=== PATIENT | female | born 1960 | race Caucasian/White ===

== ENCOUNTER 2018-02-01 11:00 | Inpatient (IN) | payer OTHER ==
[2018-02-01] MEDS: SODIUM CHLORIDE 0.9% 1L BAG IV* (11:13)
[2018-02-01] MEDS: PIPER-TAZO 3.375 GM IV (PMX) 100 ML IVPB ×2 (11:49→19:44)
[2018-02-01] MEDS: ACETAMINOPHEN 325 MG TAB PO (11:50)
[2018-02-01 11:58] LABS: ABNORMAL IP MESSAGE 1; HEMATOCRIT 33.2 % (37.0-47.0); MEAN CORPUSCULAR HEMOGLOBIN 29.3 pg (29.0-33.0); MEAN CORPUSCULAR HGB CONC 33.1 g/dl (32.0-37.0); MEAN CORPUSCULAR VOLUME 88.5 fl (82.0-101.0); MEAN PLATELET VOLUME 11.2 fl (7.4-10.4); PLATELET COUNT 208 10^3/UL (140-415); RED BLOOD COUNT 3.75 10^6/ul (4.20-5.40); RED CELL DISTRIBUTION WIDTH 13.2 % (11.5-14.5)
[2018-02-01 11:59] LABS: ADD MAN DIFF? YES; POSITIVE DIFF @See below
[2018-02-01 12:15] LABS: ALANINE AMINOTRANSFERASE 40 IU/L (13-69); ALBUMIN 3.7 g/dl (3.3-4.9); ALBUMIN/GLOBULIN RATIO 0.94; ALKALINE PHOSPHATASE 292 IU/L (42-121); ANION GAP 22 (8-16); ASPARTATE AMINO TRANSFERASE 55 IU/L (15-46); BILIRUBIN,INDIRECT 0.2 mg/dl (0-1.1); BILIRUBIN,TOTAL 0.2 mg/dl (0.2-1.3); BLOOD UREA NITROGEN 24 mg/dl (7-20); CALCIUM 8.9 mg/dl (8.4-10.2); CARBON DIOXIDE 23 mmol/L (21-31); CHLORIDE 92 mmol/L (97-110); CREATININE 1.37 mg/dl (0.44-1.00); POTASSIUM 4.5 mmol/L (3.5-5.1); SODIUM 132 mmol/L (135-144); TOTAL PROTEIN 7.6 g/dl (6.1-8.1)
[2018-02-01 12:28] LABS: INR 1.12; PROTIME 14.6 Sec (11.9-14.9); PT RATIO 1.1
[2018-02-01 12:29] LABS: PARTIAL THROMBOPLASTIN TIME 32.3 Sec (25.0-35.0)
[2018-02-01 12:31] LABS: GLUCOSE 546 mg/dl (70-220)
[2018-02-01 12:32] LABS: LACTIC ACID 3.4 mmol/L (0.5-2.0)
[2018-02-01 12:38] LABS: BAND NEUTROPHILS #M 2.2 10^3/ul (0.0-0.6); BAND NEUTROPHILS % (M) 19 % (0-4); GIANT THROMBO% (M) 1 % (0-0); LYMPHOCYTES #M 0.1 10^3/ul (0.8-2.9); LYMPHOCYTES % (M) 1 % (15-51); MONOCYTE #M 0.3 10^3/ul (0.3-0.9); MONOCYTES % (M) 3 % (0-11); PLATELET ESTIMATE NORMAL; POLYCHROMASIA 1+ (0-0); SEG NEUT #M 9.5 10^3/ul (1.6-7.5); SEGMENTED NEUTROPHILS (M) % 77 % (39-77); SMUDGE%M 3 % (0-0)
[2018-02-01] MEDS: LACTATED RINGER'S 2,480 ML IV (12:43)
[2018-02-01] MEDS: VANCOMYCIN 1 GM (PMX) 250 ML IVPB (12:43)
[2018-02-01] MEDS: INSULIN LISPRO 100 UNIT/ML VIAL SC (14:02)
[2018-02-01 14:42] LABS: LACTIC ACID 1.7 mmol/L (0.5-2.0)
[2018-02-01] MEDS ORDERED: ACETAMINOPHEN 325 MG TAB PO (15:30)
[2018-02-01] MEDS ORDERED: ONDANSETRON 4 MG INJ IV ×2 (15:30→16:00)
[2018-02-01] MEDS ORDERED: GLUCOSE GEL 15 GRAM TUBE PO ×2 (16:00)
[2018-02-01] MEDS ORDERED: DEXTROSE 50% 50 ML SYRINGE IV ×2 (16:00)
[2018-02-01] MEDS ORDERED: NACL 0.9% 3 ML SYG IV (16:00)
[2018-02-01] MEDS ORDERED: GLUCAGON 1 MG INJ IM (16:00)
[2018-02-01] MEDS ORDERED: GLUCOSE GEL 15 GRAM TUBE BUCCAL (16:00)
[2018-02-01] MEDS ORDERED: VANCOMYCIN IV PER PHARMACY XX (16:00)
[2018-02-01 16:42] LABS: LACTIC ACID 1.8 mmol/L (0.5-2.0)
[2018-02-01] MEDS: VANCOMYCIN 750 MG in DEXTROSE 5% 150 ML IVPB (17:21)
[2018-02-01] MEDS: INSULIN ASPART [NOVOLOG] 3 ML PEN SC ×2 (18:44→22:27)
[2018-02-01] MEDS: FAMOTIDINE 20 MG INJ IV (21:41)
[2018-02-01] MEDS: morphine 2 MG INJ IV (22:30)
[2018-02-02] MEDS: PIPER-TAZO 3.375 GM IV (PMX) 100 ML IVPB ×4 (01:35→18:40)
[2018-02-02] MEDS: ACCU-CHEK XX (02:00)
[2018-02-02] MEDS: ACETAMINOPHEN 325 MG TAB PO (03:21)
[2018-02-02 06:18] LABS: HEMATOCRIT 30.5 % (37.0-47.0); HEMOGLOBIN 10.1 g/dl (12.0-16.0); MEAN CORPUSCULAR HEMOGLOBIN 29.3 pg (29.0-33.0); MEAN CORPUSCULAR HGB CONC 33.1 g/dl (32.0-37.0); MEAN CORPUSCULAR VOLUME 88.4 fl (82.0-101.0); MEAN PLATELET VOLUME 11.5 fl (7.4-10.4); PLATELET COUNT 188 10^3/UL (140-415); RED BLOOD COUNT 3.45 10^6/ul (4.20-5.40); RED CELL DISTRIBUTION WIDTH 13.5 % (11.5-14.5)
[2018-02-02 06:18] LABS: WHITE BLOOD COUNT 12.9 10^3/ul (4.8-10.8)
[2018-02-02 06:24] LABS: POSITIVE DIFF @See below
[2018-02-02 06:25] LABS: ADD MAN DIFF? YES
[2018-02-02 06:47] LABS: ADD UMIC YES; UR ASCORBIC ACID NEGATIVE (NEGATIVE); UR BILIRUBIN (Dip) NEGATIVE (NEGATIVE); UR BLOOD (Dip) 1+ mg/dL (NEGATIVE); UR BUDDING YEAST FEW /HPF (NONE SEEN); UR CLARITY SLIGHTLY CLOUDY (CLEAR); UR COLOR YELLOW (YELLOW); UR GLUCOSE (Dip) 3+ mg/dL (NEGATIVE); UR KETONES (Dip) TRACE mg/dL (NEGATIVE); UR LEUKOCYTE ESTERASE (Dip) NEGATIVE Leu/ul (NEGATIVE); UR NITRITE (Dip) NEGATIVE (NEGATIVE); UR RBC 1 /HPF (0-5); UR SPECIFIC GRAVITY (Dip) 1.016 (1.003-1.030); UR SQUAMOUS EPITHELIAL CELL FEW /HPF (FEW); UR TOTAL PROTEIN (Dip) 1+ mg/dl (NEGATIVE); UR UROBILINOGEN (Dip) NEGATIVE (NEGATIVE); UR WBC 4 /HPF (0-5)
[2018-02-02 06:53] LABS: ALANINE AMINOTRANSFERASE 33 IU/L (13-69); ALBUMIN 3.3 g/dl (3.3-4.9); ALBUMIN/GLOBULIN RATIO 0.94; ALKALINE PHOSPHATASE 207 IU/L (42-121); ANION GAP 16 (8-16); ASPARTATE AMINO TRANSFERASE 27 IU/L (15-46); BILIRUBIN,INDIRECT 0.3 mg/dl (0-1.1); BILIRUBIN,TOTAL 0.3 mg/dl (0.2-1.3); BLOOD UREA NITROGEN 19 mg/dl (7-20); CALCIUM 8.6 mg/dl (8.4-10.2); CARBON DIOXIDE 23 mmol/L (21-31); CHLORIDE 99 mmol/L (97-110); CREATININE 1.03 mg/dl (0.44-1.00); GLUCOSE 286 mg/dl (70-220); SODIUM 134 mmol/L (135-144); TOTAL PROTEIN 6.8 g/dl (6.1-8.1)
[2018-02-02] MEDS: INSULIN ASPART [NOVOLOG] 3 ML PEN SC ×4 (07:57→21:18)
[2018-02-02] MEDS: FAMOTIDINE 20 MG INJ IV ×2 (09:05→21:15)
[2018-02-02] MEDS: ENOXAPARIN 30 MG/0.3 ML SYG SC (09:08)
[2018-02-02 09:23] LABS: BAND NEUTROPHILS % (M) 16 % (0-4); ERYTHROBLAST% (NRBC) (M) 2 % (0-0); GIANT THROMBO% (M) 1 % (0-0); LYMPHOCYTES #M 0.9 10^3/ul (0.8-2.9); LYMPHOCYTES % (M) 7 % (15-51); MONOCYTE #M 0.9 10^3/ul (0.3-0.9); MONOCYTES % (M) 7 % (0-11); PLATELET ESTIMATE NORMAL; POIKILOCYTOSIS 1+ (0-0); POLYCHROMASIA 1+ (0-0); SEG NEUT #M 9.3 10^3/ul (1.6-7.5); SEGMENTED NEUTROPHILS (M) % 70 % (39-77)
[2018-02-02 13:43] LABS: HEMOGLOBIN A1C 11.4 % (0-5.9)
[2018-02-02] MEDS: VANCOMYCIN 1 GM 250 ML IVPB (17:02)
[2018-02-02] MEDS: morphine 2 MG INJ IV (17:22)
[2018-02-02] MEDS: INSULIN GLARGINE [LANtus] 3 ML PEN SC (21:17)
[2018-02-03] MEDS: PIPER-TAZO 3.375 GM IV (PMX) 100 ML IVPB ×3 (00:58→12:40)
[2018-02-03] MEDS: ACCU-CHEK XX ×2 (02:31→22:19)
[2018-02-03] MEDS: morphine 2 MG INJ IV ×2 (02:31→18:55)
[2018-02-03 05:47] LABS: ADD MAN DIFF? NO
[2018-02-03 05:59] LABS: WHITE BLOOD COUNT 12.2 10^3/ul (4.8-10.8)
[2018-02-03 05:59] LABS: BASOPHIL # 0.1 10^3/ul (0.0-0.1); BASOPHILS % 0.4 % (0.0-2.0); EOSINOPHILS # 0.1 10^3/ul (0.0-0.5); EOSINOPHILS % 0.5 % (0.0-7.0); HEMATOCRIT 30.3 % (37.0-47.0); LYMPHOCYTES # 1.6 10^3/ul (0.8-2.9); LYMPHOCYTES % 13.4 % (15.0-51.0); MEAN CORPUSCULAR HEMOGLOBIN 29.3 pg (29.0-33.0); MEAN CORPUSCULAR VOLUME 88.9 fl (82.0-101.0); MEAN PLATELET VOLUME 10.9 fl (7.4-10.4); MONOCYTE # 1.1 10^3/ul (0.3-0.9); MONOCYTES % 9.3 % (0.0-11.0); NEUTROPHIL # 9.2 10^3/ul (1.6-7.5); NEUTROPHILS % 75.2 % (39.0-77.0); PLATELET COUNT 252 10^3/UL (140-415); RED BLOOD COUNT 3.41 10^6/ul (4.20-5.40); RED CELL DISTRIBUTION WIDTH 13.5 % (11.5-14.5)
[2018-02-03 06:24] LABS: ANION GAP 12 (8-16); BLOOD UREA NITROGEN 14 mg/dl (7-20); CALCIUM 8.7 mg/dl (8.4-10.2); CARBON DIOXIDE 29 mmol/L (21-31); CHLORIDE 101 mmol/L (97-110); CREATININE 0.88 mg/dl (0.44-1.00); GLUCOSE 194 mg/dl (70-220); POTASSIUM 3.9 mmol/L (3.5-5.1); SODIUM 138 mmol/L (135-144)
[2018-02-03] MEDS: INSULIN ASPART [NOVOLOG] 3 ML PEN SC ×7 (08:10→20:07)
[2018-02-03] MEDS: LINAGLIPTIN 5 MG TABLET PO (08:53)
[2018-02-03] MEDS: FAMOTIDINE 20 MG INJ IV ×2 (08:54→20:05)
[2018-02-03] MEDS: ENOXAPARIN 30 MG/0.3 ML SYG SC (08:59)
[2018-02-03] MEDS ORDERED: INFLUENZA VIRUS VACCINE 0.5 ML (DISPENSING) IM* (09:00)
[2018-02-03] MEDS: FLUCONAZOLE 100 MG TAB PO (15:25)
[2018-02-03] MEDS: LEVOFLOXACIN 500 MG TAB PO (15:25)
[2018-02-03] MEDS: VANCOMYCIN 1 GM 250 ML IVPB (18:00)
[2018-02-03] MEDS: INSULIN GLARGINE [LANtus] 3 ML PEN SC ×2 (20:00→22:19)
[2018-02-03] MEDS: ACETAMINOPHEN 325 MG TAB PO (20:05)
[2018-02-04 05:47] LABS: ADD MAN DIFF? NO
[2018-02-04 05:58] LABS: WHITE BLOOD COUNT 10.3 10^3/ul (4.8-10.8)
[2018-02-04 05:58] LABS: BASOPHILS % 0.2 % (0.0-2.0); EOSINOPHILS % 0.3 % (0.0-7.0); HEMATOCRIT 29.7 % (37.0-47.0); HEMOGLOBIN 9.9 g/dl (12.0-16.0); LYMPHOCYTES # 1.3 10^3/ul (0.8-2.9); LYMPHOCYTES % 12.7 % (15.0-51.0); MEAN CORPUSCULAR HEMOGLOBIN 29.5 pg (29.0-33.0); MEAN CORPUSCULAR HGB CONC 33.3 g/dl (32.0-37.0); MEAN CORPUSCULAR VOLUME 88.4 fl (82.0-101.0); MEAN PLATELET VOLUME 10.7 fl (7.4-10.4); MONOCYTES % 9.3 % (0.0-11.0); NEUTROPHIL # 7.9 10^3/ul (1.6-7.5); NEUTROPHILS % 76.4 % (39.0-77.0); PLATELET COUNT 285 10^3/UL (140-415); RED BLOOD COUNT 3.36 10^6/ul (4.20-5.40); RED CELL DISTRIBUTION WIDTH 13.8 % (11.5-14.5)
[2018-02-04] MEDS: LEVOFLOXACIN 500 MG TAB PO (05:59)
[2018-02-04 06:20] LABS: ANION GAP 13 (8-16); BLOOD UREA NITROGEN 10 mg/dl (7-20); CALCIUM 8.8 mg/dl (8.4-10.2); CARBON DIOXIDE 27 mmol/L (21-31); CHLORIDE 102 mmol/L (97-110); CREATININE 0.89 mg/dl (0.44-1.00); GLUCOSE 164 mg/dl (70-220); POTASSIUM 4.1 mmol/L (3.5-5.1); SODIUM 138 mmol/L (135-144)
[2018-02-04] MEDS: FAMOTIDINE 20 MG INJ IV ×2 (08:15→21:03)
[2018-02-04] MEDS: LINAGLIPTIN 5 MG TABLET PO (08:15)
[2018-02-04] MEDS: FLUCONAZOLE 100 MG TAB PO (08:15)
[2018-02-04] MEDS: INSULIN ASPART [NOVOLOG] 3 ML PEN SC ×7 (08:22→21:00)
[2018-02-04] MEDS: ENOXAPARIN 30 MG/0.3 ML SYG SC (08:23)
[2018-02-04 17:06] LABS: VANCOMYCIN,TROUGH 7.2 ug/ml (10.0-20.0)
[2018-02-04] MEDS: VANCOMYCIN 1 GM 250 ML IVPB (17:25)
[2018-02-04] MEDS: INSULIN GLARGINE [LANtus] 3 ML PEN SC (21:11)
[2018-02-04] MEDS: morphine 2 MG INJ IV (23:59)
[2018-02-05] MEDS: ACCU-CHEK XX (02:00)
[2018-02-05 05:56] LABS: ADD MAN DIFF? NO
[2018-02-05] MEDS: VANCOMYCIN 1 GM 250 ML IVPB ×2 (06:06→17:45)
[2018-02-05] MEDS: LEVOFLOXACIN 500 MG TAB PO (06:06)
[2018-02-05 06:10] LABS: WHITE BLOOD COUNT 8.4 10^3/ul (4.8-10.8)
[2018-02-05 06:11] LABS: BASOPHILS % 0.2 % (0.0-2.0); EOSINOPHILS # 0.1 10^3/ul (0.0-0.5); HEMATOCRIT 29.4 % (37.0-47.0); HEMOGLOBIN 9.7 g/dl (12.0-16.0); LYMPHOCYTES # 1.3 10^3/ul (0.8-2.9); MEAN CORPUSCULAR HEMOGLOBIN 29.8 pg (29.0-33.0); MEAN CORPUSCULAR VOLUME 90.2 fl (82.0-101.0); MEAN PLATELET VOLUME 10.5 fl (7.4-10.4); MONOCYTE # 1.1 10^3/ul (0.3-0.9); MONOCYTES % 12.8 % (0.0-11.0); NEUTROPHIL # 5.9 10^3/ul (1.6-7.5); NEUTROPHILS % 69.7 % (39.0-77.0); PLATELET COUNT 324 10^3/UL (140-415); RED BLOOD COUNT 3.26 10^6/ul (4.20-5.40); RED CELL DISTRIBUTION WIDTH 13.8 % (11.5-14.5)
[2018-02-05 06:37] LABS: ANION GAP 12 (8-16); BLOOD UREA NITROGEN 9 mg/dl (7-20); CALCIUM 8.6 mg/dl (8.4-10.2); CARBON DIOXIDE 30 mmol/L (21-31); CHLORIDE 103 mmol/L (97-110); CREATININE 0.87 mg/dl (0.44-1.00); GLUCOSE 147 mg/dl (70-220); POTASSIUM 3.6 mmol/L (3.5-5.1); SODIUM 141 mmol/L (135-144)
[2018-02-05] MEDS: INSULIN ASPART [NOVOLOG] 3 ML PEN SC ×7 (08:46→20:50)
[2018-02-05] MEDS: LINAGLIPTIN 5 MG TABLET PO (08:57)
[2018-02-05] MEDS: FLUCONAZOLE 100 MG TAB PO (08:57)
[2018-02-05] MEDS: FAMOTIDINE 20 MG INJ IV (08:57)
[2018-02-05] MEDS: ENOXAPARIN 30 MG/0.3 ML SYG SC (09:01)
[2018-02-05] MEDS: LIDOCAINE 1% (MPF) 5 ML VIAL SC (10:10)
[2018-02-05] MEDS: SOD CHLORIDE 0.9% 100 ML (10:20)
[2018-02-05] MEDS: FAMOTIDINE 20 MG TAB PO (20:48)
[2018-02-05] MEDS: INSULIN GLARGINE [LANtus] 3 ML PEN SC (20:50)
[2018-02-05] MEDS: morphine 2 MG INJ IV (20:56)
[2018-02-06] MEDS: ACCU-CHEK XX (02:00)
[2018-02-06] MEDS: LEVOFLOXACIN 500 MG TAB PO (05:34)
[2018-02-06 06:00] LABS: ADD MAN DIFF? NO
[2018-02-06 06:26] LABS: WHITE BLOOD COUNT 7.6 10^3/ul (4.8-10.8)
[2018-02-06 06:26] LABS: BASOPHILS % 0.3 % (0.0-2.0); EOSINOPHILS # 0.1 10^3/ul (0.0-0.5); EOSINOPHILS % 1.3 % (0.0-7.0); HEMOGLOBIN 10.1 g/dl (12.0-16.0); LYMPHOCYTES # 1.1 10^3/ul (0.8-2.9); LYMPHOCYTES % 14.3 % (15.0-51.0); MEAN CORPUSCULAR HEMOGLOBIN 29.2 pg (29.0-33.0); MEAN CORPUSCULAR HGB CONC 32.6 g/dl (32.0-37.0); MEAN CORPUSCULAR VOLUME 89.6 fl (82.0-101.0); MEAN PLATELET VOLUME 10.2 fl (7.4-10.4); MONOCYTE # 0.9 10^3/ul (0.3-0.9); MONOCYTES % 11.9 % (0.0-11.0); NEUTROPHIL # 5.4 10^3/ul (1.6-7.5); NEUTROPHILS % 70.9 % (39.0-77.0); PLATELET COUNT 362 10^3/UL (140-415); RED BLOOD COUNT 3.46 10^6/ul (4.20-5.40); RED CELL DISTRIBUTION WIDTH 13.7 % (11.5-14.5)
[2018-02-06 07:10] LABS: VANCOMYCIN,TROUGH 12.5 ug/ml (10.0-20.0)
[2018-02-06] MEDS: VANCOMYCIN 1 GM 250 ML IVPB (07:57)
[2018-02-06] MEDS: INSULIN ASPART [NOVOLOG] 3 ML PEN SC ×7 (08:00→21:25)
[2018-02-06] MEDS: FAMOTIDINE 20 MG TAB PO ×2 (09:00→21:20)
[2018-02-06] MEDS: FLUCONAZOLE 100 MG TAB PO (09:00)
[2018-02-06] MEDS: ENOXAPARIN 30 MG/0.3 ML SYG SC (09:00)
[2018-02-06] MEDS ORDERED: POLYMYXIN/BACITRACIN 1L IRRIG (12:01)
[2018-02-06] MEDS ORDERED: ROPIVACAINE 0.5 % 30 ML VIAL (13:03)
[2018-02-06] MEDS ORDERED: MIDAZOLAM 1 MG/ML 2 ML INJ (13:03)
[2018-02-06] MEDS ORDERED: PROPOFOL 20 ML (13:03)
[2018-02-06] MEDS ORDERED: ONDANSETRON 4 MG INJ (13:03)
[2018-02-06] MEDS ORDERED: FENTAnyl 50 MCG/ML VIAL (13:08)
[2018-02-06] MEDS: BUPIVACAINE 0.5% (SDV) 30 ML INJ (14:32)
[2018-02-06] MEDS: LIDOCAINE 2% (MDV) 20 ML INJ (14:33)
[2018-02-06] MEDS: LINAGLIPTIN 5 MG TABLET PO (17:55)
[2018-02-06] MEDS: VANCOMYCIN 1.25 GM in SOD CHLORIDE 0.9% 250 ML IVPB (17:56)
[2018-02-06] MEDS: morphine 2 MG INJ IV ×2 (18:01→21:44)
[2018-02-06] MEDS: INSULIN GLARGINE [LANtus] 3 ML PEN SC (21:25)
[2018-02-07] MEDS: ACCU-CHEK XX (02:00)
[2018-02-07] MEDS: VANCOMYCIN 1.25 GM in SOD CHLORIDE 0.9% 250 ML IVPB ×2 (05:40→17:41)
[2018-02-07] MEDS: LEVOFLOXACIN 500 MG TAB PO (05:40)
[2018-02-07] MEDS: INSULIN ASPART [NOVOLOG] 3 ML PEN SC ×7 (08:15→21:00)
[2018-02-07] MEDS: ENOXAPARIN 30 MG/0.3 ML SYG SC (08:21)
[2018-02-07] MEDS: FAMOTIDINE 20 MG TAB PO ×2 (08:22→20:27)
[2018-02-07] MEDS: LINAGLIPTIN 5 MG TABLET PO (08:22)
[2018-02-07] MEDS: INSULIN GLARGINE [LANtus] 3 ML PEN SC (20:27)
[2018-02-08] MEDS: ACCU-CHEK XX (03:00)
[2018-02-08] MEDS: LEVOFLOXACIN 500 MG TAB PO (05:27)
[2018-02-08] MEDS: VANCOMYCIN 1.25 GM in SOD CHLORIDE 0.9% 250 ML IVPB (06:00)
[2018-02-08 06:12] LABS: ADD MAN DIFF? NO
[2018-02-08 06:22] LABS: WHITE BLOOD COUNT 6.7 10^3/ul (4.8-10.8)
[2018-02-08 06:22] LABS: BASOPHILS % 0.3 % (0.0-2.0); EOSINOPHILS # 0.2 10^3/ul (0.0-0.5); EOSINOPHILS % 2.5 % (0.0-7.0); HEMATOCRIT 27.6 % (37.0-47.0); LYMPHOCYTES # 1.3 10^3/ul (0.8-2.9); LYMPHOCYTES % 19.7 % (15.0-51.0); MEAN CORPUSCULAR HEMOGLOBIN 29.1 pg (29.0-33.0); MEAN CORPUSCULAR HGB CONC 32.6 g/dl (32.0-37.0); MEAN CORPUSCULAR VOLUME 89.3 fl (82.0-101.0); MONOCYTE # 0.7 10^3/ul (0.3-0.9); MONOCYTES % 10.4 % (0.0-11.0); NEUTROPHIL # 4.4 10^3/ul (1.6-7.5); NEUTROPHILS % 65.9 % (39.0-77.0); PLATELET COUNT 385 10^3/UL (140-415); RED BLOOD COUNT 3.09 10^6/ul (4.20-5.40); RED CELL DISTRIBUTION WIDTH 13.7 % (11.5-14.5)
[2018-02-08 06:45] LABS: BLOOD UREA NITROGEN 9 mg/dl (7-20)
[2018-02-08 06:45] LABS: CREATININE 0.86 mg/dl (0.44-1.00)
[2018-02-08 06:51] LABS: ANION GAP 14 (8-16); BLOOD UREA NITROGEN 8 mg/dl (7-20); CARBON DIOXIDE 28 mmol/L (21-31); CHLORIDE 105 mmol/L (97-110); CREATININE 0.84 mg/dl (0.44-1.00); GLUCOSE 92 mg/dl (70-220); SODIUM 143 mmol/L (135-144)
[2018-02-08 07:07] LABS: VANCOMYCIN,TROUGH 19.3 ug/ml (10.0-20.0)
[2018-02-08] MEDS: INSULIN ASPART [NOVOLOG] 3 ML PEN SC ×7 (08:15→21:00)
[2018-02-08] MEDS: LINAGLIPTIN 5 MG TABLET PO (08:32)
[2018-02-08] MEDS: FAMOTIDINE 20 MG TAB PO ×2 (08:32→21:11)
[2018-02-08] MEDS: morphine 2 MG INJ IV ×2 (08:33→21:18)
[2018-02-08] MEDS: ENOXAPARIN 30 MG/0.3 ML SYG SC (08:34)
[2018-02-08] MEDS: VANCOMYCIN 1 GM 250 ML IVPB ×2 (11:26→23:17)
[2018-02-08] MEDS: INSULIN GLARGINE [LANtus] 3 ML PEN SC (21:15)
[2018-02-09] MEDS: ACCU-CHEK XX (02:00)
[2018-02-09] MEDS: LEVOFLOXACIN 500 MG TAB PO (05:11)
[2018-02-09 05:36] LABS: ADD MAN DIFF? NO
[2018-02-09 05:40] LABS: WHITE BLOOD COUNT 6.2 10^3/ul (4.8-10.8)
[2018-02-09 05:40] LABS: BASOPHILS % 0.3 % (0.0-2.0); EOSINOPHILS # 0.2 10^3/ul (0.0-0.5); EOSINOPHILS % 2.6 % (0.0-7.0); HEMATOCRIT 26.8 % (37.0-47.0); HEMOGLOBIN 8.8 g/dl (12.0-16.0); LYMPHOCYTES # 1.4 10^3/ul (0.8-2.9); LYMPHOCYTES % 21.9 % (15.0-51.0); MEAN CORPUSCULAR HEMOGLOBIN 29.4 pg (29.0-33.0); MEAN CORPUSCULAR HGB CONC 32.8 g/dl (32.0-37.0); MEAN CORPUSCULAR VOLUME 89.6 fl (82.0-101.0); MEAN PLATELET VOLUME 9.8 fl (7.4-10.4); MONOCYTE # 0.6 10^3/ul (0.3-0.9); MONOCYTES % 8.9 % (0.0-11.0); NEUTROPHILS % 65.2 % (39.0-77.0); PLATELET COUNT 344 10^3/UL (140-415); RED BLOOD COUNT 2.99 10^6/ul (4.20-5.40); RED CELL DISTRIBUTION WIDTH 13.8 % (11.5-14.5)
[2018-02-09 06:08] LABS: ANION GAP 12 (8-16); BLOOD UREA NITROGEN 9 mg/dl (7-20); CALCIUM 8.9 mg/dl (8.4-10.2); CARBON DIOXIDE 29 mmol/L (21-31); CHLORIDE 105 mmol/L (97-110); CREATININE 0.84 mg/dl (0.44-1.00); GLUCOSE 141 mg/dl (70-220); POTASSIUM 4.2 mmol/L (3.5-5.1); SODIUM 142 mmol/L (135-144)
[2018-02-09] MEDS: INSULIN ASPART [NOVOLOG] 3 ML PEN SC ×7 (08:24→20:10)
[2018-02-09] MEDS: LINAGLIPTIN 5 MG TABLET PO (09:01)
[2018-02-09] MEDS: FAMOTIDINE 20 MG TAB PO ×2 (09:01→20:10)
[2018-02-09] MEDS: ENOXAPARIN 30 MG/0.3 ML SYG SC (09:05)
[2018-02-09] MEDS: VANCOMYCIN 1 GM 250 ML IVPB (12:26)
[2018-02-09] MEDS: CEFTRIAXONE 1 GM/50 ML (PMX) 50 ML IVPB (15:41)
[2018-02-09] MEDS: INSULIN GLARGINE [LANtus] 3 ML PEN SC (20:10)
[2018-02-10] MEDS: morphine 2 MG INJ IV (00:06)
[2018-02-10] MEDS: ACCU-CHEK XX (02:00)
[2018-02-10] MEDS: INSULIN ASPART [NOVOLOG] 3 ML PEN SC ×7 (07:57→20:30)
[2018-02-10] MEDS: FAMOTIDINE 20 MG TAB PO ×2 (09:30→20:30)
[2018-02-10] MEDS: LINAGLIPTIN 5 MG TABLET PO (09:30)
[2018-02-10] MEDS: ENOXAPARIN 30 MG/0.3 ML SYG SC (09:32)
[2018-02-10] MEDS: CEFTRIAXONE 1 GM/50 ML (PMX) 50 ML IVPB (13:34)
[2018-02-10] MEDS: INSULIN GLARGINE [LANtus] 3 ML PEN SC (20:29)
[2018-02-11] MEDS: ACCU-CHEK XX (01:12)
[2018-02-11 06:58] LABS: ADD MAN DIFF? NO
[2018-02-11 07:06] LABS: BASOPHILS % 0.6 % (0.0-2.0); EOSINOPHILS # 0.1 10^3/ul (0.0-0.5); EOSINOPHILS % 1.9 % (0.0-7.0); HEMATOCRIT 30.2 % (37.0-47.0); HEMOGLOBIN 9.9 g/dl (12.0-16.0); LYMPHOCYTES # 1.5 10^3/ul (0.8-2.9); LYMPHOCYTES % 24.3 % (15.0-51.0); MEAN CORPUSCULAR HEMOGLOBIN 29.6 pg (29.0-33.0); MEAN CORPUSCULAR HGB CONC 32.8 g/dl (32.0-37.0); MEAN CORPUSCULAR VOLUME 90.1 fl (82.0-101.0); MEAN PLATELET VOLUME 9.3 fl (7.4-10.4); MONOCYTE # 0.4 10^3/ul (0.3-0.9); MONOCYTES % 7.1 % (0.0-11.0); PLATELET COUNT 439 10^3/UL (140-415); RED BLOOD COUNT 3.35 10^6/ul (4.20-5.40); RED CELL DISTRIBUTION WIDTH 13.9 % (11.5-14.5)
[2018-02-11 07:06] LABS: WHITE BLOOD COUNT 6.2 10^3/ul (4.8-10.8)
[2018-02-11 07:24] LABS: ANION GAP 15 (8-16); BLOOD UREA NITROGEN 13 mg/dl (7-20); CALCIUM 9.3 mg/dl (8.4-10.2); CARBON DIOXIDE 29 mmol/L (21-31); CHLORIDE 104 mmol/L (97-110); GLUCOSE 149 mg/dl (70-220); POTASSIUM 4.7 mmol/L (3.5-5.1); SODIUM 143 mmol/L (135-144)
[2018-02-11] MEDS: FAMOTIDINE 20 MG TAB PO ×2 (08:11→20:46)
[2018-02-11] MEDS: LINAGLIPTIN 5 MG TABLET PO (08:11)
[2018-02-11] MEDS: INSULIN ASPART [NOVOLOG] 3 ML PEN SC ×7 (08:17→20:46)
[2018-02-11] MEDS: ENOXAPARIN 30 MG/0.3 ML SYG SC (08:18)
[2018-02-11] MEDS: CEFTRIAXONE 1 GM/50 ML (PMX) 50 ML IVPB (13:43)
[2018-02-11] MEDS: INSULIN GLARGINE [LANtus] 3 ML PEN SC (20:46)
[2018-02-12] MEDS: ACCU-CHEK XX (02:00)
[2018-02-12] MEDS: morphine LIQ (10 MG/5 ML) CUP PO (02:24)
[2018-02-12 05:58] LABS: ADD MAN DIFF? NO
[2018-02-12 05:59] LABS: WHITE BLOOD COUNT 6.7 10^3/ul (4.8-10.8)
[2018-02-12 05:59] LABS: BASOPHILS % 0.5 % (0.0-2.0); EOSINOPHILS # 0.1 10^3/ul (0.0-0.5); EOSINOPHILS % 1.8 % (0.0-7.0); HEMATOCRIT 30.9 % (37.0-47.0); HEMOGLOBIN 10.1 g/dl (12.0-16.0); LYMPHOCYTES # 1.9 10^3/ul (0.8-2.9); MEAN CORPUSCULAR HGB CONC 32.7 g/dl (32.0-37.0); MEAN CORPUSCULAR VOLUME 88.8 fl (82.0-101.0); MEAN PLATELET VOLUME 9.2 fl (7.4-10.4); MONOCYTE # 0.6 10^3/ul (0.3-0.9); MONOCYTES % 8.3 % (0.0-11.0); NEUTROPHILS % 59.6 % (39.0-77.0); PLATELET COUNT 406 10^3/UL (140-415); RED BLOOD COUNT 3.48 10^6/ul (4.20-5.40); RED CELL DISTRIBUTION WIDTH 13.3 % (11.5-14.5)
[2018-02-12 06:30] LABS: ANION GAP 15 (8-16); BLOOD UREA NITROGEN 17 mg/dl (7-20); CALCIUM 9.4 mg/dl (8.4-10.2); CARBON DIOXIDE 28 mmol/L (21-31); CHLORIDE 105 mmol/L (97-110); CREATININE 0.96 mg/dl (0.44-1.00); GLUCOSE 143 mg/dl (70-220); POTASSIUM 4.6 mmol/L (3.5-5.1); SODIUM 143 mmol/L (135-144)
[2018-02-12] MEDS: INSULIN ASPART [NOVOLOG] 3 ML PEN SC ×7 (08:15→20:32)
[2018-02-12] MEDS: LINAGLIPTIN 5 MG TABLET PO (08:38)
[2018-02-12] MEDS: ENOXAPARIN 30 MG/0.3 ML SYG SC (08:38)
[2018-02-12] MEDS: FAMOTIDINE 20 MG TAB PO ×2 (08:38→20:29)
[2018-02-12] MEDS: CEFTRIAXONE 1 GM/50 ML (PMX) 50 ML IVPB (14:43)
[2018-02-12] MEDS: INSULIN GLARGINE [LANtus] 3 ML PEN SC (20:32)
[2018-02-13] MEDS: ACCU-CHEK XX ×2 (00:41→21:47)
[2018-02-13] MEDS: FAMOTIDINE 20 MG TAB PO ×2 (08:18→20:42)
[2018-02-13] MEDS: LINAGLIPTIN 5 MG TABLET PO (08:18)
[2018-02-13] MEDS: ENOXAPARIN 30 MG/0.3 ML SYG SC (08:24)
[2018-02-13] MEDS: INSULIN ASPART [NOVOLOG] 3 ML PEN SC ×7 (08:24→21:00)
[2018-02-13] MEDS: CEFTRIAXONE 1 GM/50 ML (PMX) 50 ML IVPB (13:08)
[2018-02-13] MEDS ORDERED: HYDROCODONE/APAP (5/325) TAB PO (16:00)
[2018-02-13] MEDS: INSULIN GLARGINE [LANtus] 3 ML PEN SC (20:00)
[2018-02-13] MEDS: morphine LIQ (10 MG/5 ML) CUP PO (20:14)
[2018-02-14 05:52] LABS: ADD MAN DIFF? NO
[2018-02-14 06:03] LABS: BASOPHIL # 0.1 10^3/ul (0.0-0.1); BASOPHILS % 0.8 % (0.0-2.0); EOSINOPHILS # 0.1 10^3/ul (0.0-0.5); EOSINOPHILS % 2.1 % (0.0-7.0); HEMATOCRIT 30.7 % (37.0-47.0); MEAN CORPUSCULAR HEMOGLOBIN 29.4 pg (29.0-33.0); MEAN CORPUSCULAR HGB CONC 32.6 g/dl (32.0-37.0); MEAN CORPUSCULAR VOLUME 90.3 fl (82.0-101.0); MEAN PLATELET VOLUME 9.5 fl (7.4-10.4); MONOCYTE # 0.5 10^3/ul (0.3-0.9); MONOCYTES % 8.4 % (0.0-11.0); NEUTROPHIL # 3.5 10^3/ul (1.6-7.5); NEUTROPHILS % 55.9 % (39.0-77.0); PLATELET COUNT 378 10^3/UL (140-415); RED CELL DISTRIBUTION WIDTH 13.4 % (11.5-14.5)
[2018-02-14 06:03] LABS: WHITE BLOOD COUNT 6.2 10^3/ul (4.8-10.8)
[2018-02-14 06:15] LABS: ANION GAP 19 (8-16); BLOOD UREA NITROGEN 23 mg/dl (7-20); CALCIUM 9.2 mg/dl (8.4-10.2); CARBON DIOXIDE 26 mmol/L (21-31); CHLORIDE 104 mmol/L (97-110); CREATININE 0.95 mg/dl (0.44-1.00); GLUCOSE 137 mg/dl (70-220); POTASSIUM 4.8 mmol/L (3.5-5.1); SODIUM 144 mmol/L (135-144)
[2018-02-14] MEDS: INSULIN ASPART [NOVOLOG] 3 ML PEN SC ×7 (08:32→20:50)
[2018-02-14] MEDS: FAMOTIDINE 20 MG TAB PO ×2 (08:38→20:47)
[2018-02-14] MEDS: LINAGLIPTIN 5 MG TABLET PO (08:38)
[2018-02-14] MEDS: ENOXAPARIN 30 MG/0.3 ML SYG SC (08:39)
[2018-02-14] MEDS: CEFTRIAXONE 1 GM/50 ML (PMX) 50 ML IVPB (17:37)
[2018-02-14] MEDS: INSULIN GLARGINE [LANtus] 3 ML PEN SC (20:50)
[2018-02-15] MEDS: ACCU-CHEK XX (02:00)
[2018-02-15] MEDS: LINAGLIPTIN 5 MG TABLET PO (08:11)
[2018-02-15] MEDS: FAMOTIDINE 20 MG TAB PO (08:12)
[2018-02-15] MEDS: ENOXAPARIN 30 MG/0.3 ML SYG SC (08:13)
[2018-02-15] MEDS: INSULIN ASPART [NOVOLOG] 3 ML PEN SC ×4 (08:19→12:07)
[2018-02-15] MEDS: CEFTRIAXONE 1 GM/50 ML (PMX) 50 ML IVPB (14:19)
== END 2018-02-15 15:50 | disposition home health service (06) | DRG 872 ==
LOC: E/R 11:00 → MS2 19:48
PROC: 0Y9M0ZX Drainage of Right Foot, Open Approach, Diagnostic (ICD-10-PCS; 2018-02-06 13:00)
PROC: 0Y9K0ZX Drainage of Right Ankle Region, Open Approach, Diagnostic (ICD-10-PCS; 2018-02-06 13:00)
PROC: 05H533Z Insertion of Infusion Device into Right Subclavian Vein, Percutaneous Approach (ICD-10-PCS; principal; 2018-02-06 13:38)
PROC: B546ZZA Ultrasonography of Right Subclavian Vein, Guidance (ICD-10-PCS; 2018-02-06 13:38)
DX: A41.9 Sepsis, unspecified organism (principal); E11.21 Type 2 diabetes mellitus with diabetic nephropathy; E11.40 Type 2 diabetes mellitus with diabetic neuropathy, unspecified; M86.171 Other acute osteomyelitis, right ankle and foot; L02.611 Cutaneous abscess of right foot; E11.22 Type 2 diabetes mellitus with diabetic chronic kidney disease; E11.621 Type 2 diabetes mellitus with foot ulcer; E11.610 Type 2 diabetes mellitus with diabetic neuropathic arthropathy; E66.01 Morbid (severe) obesity due to excess calories; E11.65 Type 2 diabetes mellitus with hyperglycemia; L97.512 Non-pressure chronic ulcer of other part of right foot with fat layer exposed; R65.20 Severe sepsis without septic shock; I12.9 Hypertensive chronic kidney disease with stage 1 through stage 4 chronic kidney disease, or unspecified chronic kidney disease; N18.9 Chronic kidney disease, unspecified; D63.8 Anemia in other chronic diseases classified elsewhere; E78.5 Hyperlipidemia, unspecified; I70.203 Unspecified atherosclerosis of native arteries of extremities, bilateral legs; B95.1 Streptococcus, group B, as the cause of diseases classified elsewhere; Z68.33 Body mass index [BMI] 33.0-33.9, adult; Z79.4 Long term (current) use of insulin; Z91.19 Patient's noncompliance with other medical treatment and regimen
CPT/HCPCS: 36415; 36569; 71045; 73630; 73718; 76937; 80048; 80053; 80202; 81001; 82565; 82962; 83036; 83605; 84443; 84484; 84520; 85025; 85610; 85730; 87040; 87070; 87075; 87086; 87102; 87116; 93005; 93306; 93922; 96372; 96374; 96375; 97116; 97161; 97530; 97542; 99291-25

== ENCOUNTER 2018-03-03 13:39 | Emergency (ER) | payer OTHER ==
[2018-03-03 15:42] LABS: INR 0.93; PROTIME 12.6 Sec (11.9-14.9)
[2018-03-03] MEDS: LIDOCAINE 1% (MPF) 5 ML VIAL SC (16:24)
== END 2018-03-03 17:20 | disposition home or self-care (01) ==
LOC: E/R 13:39
DX: Z45.2 Encounter for adjustment and management of vascular access device (principal); E11.9 Type 2 diabetes mellitus without complications; Z79.4 Long term (current) use of insulin
CPT/HCPCS: 36569; 71045; 76937; 85610; 99285-25

== ENCOUNTER 2018-06-08 17:45 | Inpatient (IN) | payer MEDICARE, OTHER ==
[2018-06-08 21:42] LABS: ADD MAN DIFF? NO
[2018-06-08 21:46] LABS: WHITE BLOOD COUNT 10.3 10^3/ul (4.8-10.8)
[2018-06-08 21:46] LABS: BASOPHILS % 0.2 % (0.0-2.0); EOSINOPHILS % 0.3 % (0.0-7.0); HEMATOCRIT 32.8 % (37.0-47.0); HEMOGLOBIN 10.6 g/dl (12.0-16.0); LYMPHOCYTES # 0.9 10^3/ul (0.8-2.9); LYMPHOCYTES % 8.4 % (15.0-51.0); MEAN CORPUSCULAR HEMOGLOBIN 28.6 pg (29.0-33.0); MEAN CORPUSCULAR HGB CONC 32.3 g/dl (32.0-37.0); MEAN CORPUSCULAR VOLUME 88.6 fl (82.0-101.0); MEAN PLATELET VOLUME 10.1 fl (7.4-10.4); MONOCYTE # 0.7 10^3/ul (0.3-0.9); MONOCYTES % 6.6 % (0.0-11.0); NEUTROPHIL # 8.7 10^3/ul (1.6-7.5); NEUTROPHILS % 84.1 % (39.0-77.0); PLATELET COUNT 377 10^3/UL (140-415); RED CELL DISTRIBUTION WIDTH 13.3 % (11.5-14.5)
[2018-06-08 22:04] LABS: ADD UMIC YES; UR ASCORBIC ACID NEGATIVE (NEGATIVE); UR BACTERIA FEW /HPF (NONE SEEN); UR BILIRUBIN (Dip) NEGATIVE (NEGATIVE); UR BLOOD (Dip) 1+ mg/dL (NEGATIVE); UR CLARITY SLIGHTLY CLOUDY (CLEAR); UR COLOR YELLOW (YELLOW); UR GLUCOSE (Dip) 3+ mg/dL (NEGATIVE); UR KETONES (Dip) NEGATIVE (NEGATIVE); UR LEUKOCYTE ESTERASE (Dip) NEGATIVE Leu/ul (NEGATIVE); UR NITRITE (Dip) POSITIVE (NEGATIVE); UR RBC 1 /HPF (0-5); UR SQUAMOUS EPITHELIAL CELL FEW /HPF (FEW); UR TOTAL PROTEIN (Dip) NEGATIVE (NEGATIVE); UR UROBILINOGEN (Dip) NEGATIVE (NEGATIVE); UR WBC 3 /HPF (0-5)
[2018-06-08 22:05] LABS: ALANINE AMINOTRANSFERASE 22 IU/L (13-69); ALBUMIN 4.3 g/dl (3.3-4.9); ALBUMIN/GLOBULIN RATIO 0.95; ALKALINE PHOSPHATASE 226 IU/L (42-121); ANION GAP 18 (8-16); ASPARTATE AMINO TRANSFERASE 30 IU/L (15-46); BILIRUBIN,INDIRECT 0.5 mg/dl (0-1.1); BILIRUBIN,TOTAL 0.5 mg/dl (0.2-1.3); BLOOD UREA NITROGEN 25 mg/dl (7-20); CALCIUM 9.3 mg/dl (8.4-10.2); CARBON DIOXIDE 23 mmol/L (21-31); CHLORIDE 97 mmol/L (97-110); CREATININE 0.94 mg/dl (0.44-1.00); GLUCOSE 333 mg/dl (70-220); SODIUM 133 mmol/L (135-144); TOTAL PROTEIN 8.8 g/dl (6.1-8.1)
[2018-06-08 22:14] LABS: LACTIC ACID 2.7 mmol/L (0.5-2.0)
[2018-06-08 22:16] LABS: TROPONIN-I < 0.010 ng/ml (0.000-0.120)
[2018-06-08 22:30] LABS: POTASSIUM 5.4 mmol/L (3.5-5.1)
[2018-06-08 22:42] LABS: INR 1.04; PROTIME 13.7 Sec (11.9-14.9); PT RATIO 1.1
[2018-06-08] MEDS: CEFTRIAXONE 1 GM/50 ML (PMX) 50 ML IVPB (23:11)
[2018-06-08] MEDS: SOD CHLORIDE 0.9% 1,000 ML IV (23:11)
[2018-06-08] MEDS: morphine 4 MG/ML VIAL IV (23:11)
[2018-06-08] MEDS: ONDANSETRON 4 MG INJ IV (23:11)
[2018-06-08] MEDS: VANCOMYCIN 1 GM (PMX) 250 ML IVPB (23:15)
[2018-06-08] MEDS: PIPER-TAZO 3.375 GM IV (PMX) 100 ML IVPB (23:16)
[2018-06-09] MEDS: ACETAMINOPHEN 325 MG TAB PO (00:56)
[2018-06-09] MEDS ORDERED: ZOLPIDEM 5 MG TAB PO (12:30)
[2018-06-09] MEDS ORDERED: ONDANSETRON 4 MG INJ IV (12:30)
[2018-06-09] MEDS ORDERED: VANCOMYCIN IV PER PHARMACY XX (12:30)
[2018-06-09] MEDS ORDERED: ACETAMINOPHEN 325 MG TAB PO (12:30)
[2018-06-09] MEDS ORDERED: morphine 2 MG INJ IV (12:30)
[2018-06-09 13:28] LABS: ADD MAN DIFF? NO
[2018-06-09 13:34] LABS: BASOPHILS % 0.4 % (0.0-2.0); EOSINOPHILS # 0.1 10^3/ul (0.0-0.5); EOSINOPHILS % 1.3 % (0.0-7.0); HEMATOCRIT 31.1 % (37.0-47.0); HEMOGLOBIN 9.9 g/dl (12.0-16.0); LYMPHOCYTES # 1.1 10^3/ul (0.8-2.9); LYMPHOCYTES % 14.9 % (15.0-51.0); MEAN CORPUSCULAR HEMOGLOBIN 28.7 pg (29.0-33.0); MEAN CORPUSCULAR HGB CONC 31.8 g/dl (32.0-37.0); MEAN CORPUSCULAR VOLUME 90.1 fl (82.0-101.0); MEAN PLATELET VOLUME 9.5 fl (7.4-10.4); MONOCYTE # 0.6 10^3/ul (0.3-0.9); MONOCYTES % 7.8 % (0.0-11.0); NEUTROPHIL # 5.8 10^3/ul (1.6-7.5); NEUTROPHILS % 75.1 % (39.0-77.0); PLATELET COUNT 328 10^3/UL (140-415); RED BLOOD COUNT 3.45 10^6/ul (4.20-5.40); RED CELL DISTRIBUTION WIDTH 13.2 % (11.5-14.5)
[2018-06-09 13:34] LABS: WHITE BLOOD COUNT 7.7 10^3/ul (4.8-10.8)
[2018-06-09 13:51] LABS: ANION GAP 16 (8-16); BLOOD UREA NITROGEN 17 mg/dl (7-20); CALCIUM 8.9 mg/dl (8.4-10.2); CARBON DIOXIDE 23 mmol/L (21-31); CHLORIDE 103 mmol/L (97-110); CREATININE 0.87 mg/dl (0.44-1.00); GLUCOSE 385 mg/dl (70-220); POTASSIUM 4.7 mmol/L (3.5-5.1); SODIUM 137 mmol/L (135-144)
[2018-06-09 14:21] LABS: HEMOGLOBIN A1C 10.7 % (0-5.9)
[2018-06-09] MEDS: HYDROCODONE/APAP (5/325) TAB PO (14:28)
[2018-06-09] MEDS ORDERED: DEXTROSE 50% 50 ML SYRINGE IV ×2 (14:30)
[2018-06-09] MEDS ORDERED: GLUCOSE GEL 15 GRAM TUBE PO (14:30)
[2018-06-09] MEDS ORDERED: GLUCAGON 1 MG INJ IM (14:30)
[2018-06-09] MEDS: SOD CHLORIDE 0.9% 1,000 ML IV (15:05)
[2018-06-09] MEDS: VANCOMYCIN 1 GM 250 ML IVPB (15:39)
[2018-06-09] MEDS: INSULIN ASPART [NOVOLOG] 3 ML PEN SC ×3 (18:00→22:18)
[2018-06-09] MEDS: metFORMIN 500 MG TAB PO (21:21)
[2018-06-09] MEDS: FAMOTIDINE 20 MG TAB PO (22:12)
[2018-06-09] MEDS: INSULIN GLARGINE [LANTus] (100 UNITS/ML) SYG SC (22:19)
[2018-06-09] MEDS: CEFTRIAXONE 1 GM/50 ML (PMX) 50 ML IVPB (23:11)
[2018-06-10] MEDS: ACCU-CHEK XX (01:27)
[2018-06-10] MEDS: INSULIN GLARGINE [LANTus] (100 UNITS/ML) SYG SC ×2 (01:31→21:01)
[2018-06-10] MEDS: SOD CHLORIDE 0.9% 1,000 ML IV ×4 (02:20→20:54)
[2018-06-10] MEDS: VANCOMYCIN 1 GM 250 ML IVPB ×2 (03:08→16:11)
[2018-06-10] MEDS: metFORMIN 500 MG TAB PO ×2 (08:11→17:50)
[2018-06-10] MEDS: INSULIN ASPART [NOVOLOG] 3 ML PEN SC ×7 (08:14→20:58)
[2018-06-10] MEDS: ENOXAPARIN 30 MG/0.3 ML SYG SC (08:15)
[2018-06-10] MEDS: DOCUSATE SODIUM 100 MG CAP PO (08:16)
[2018-06-10] MEDS: FAMOTIDINE 20 MG TAB PO ×2 (08:16→20:53)
[2018-06-10] MEDS ORDERED: morphine LIQ (10 MG/5 ML) CUP PO (14:30)
[2018-06-10] MEDS: CEFTRIAXONE 1 GM/50 ML (PMX) 50 ML IVPB (23:09)
[2018-06-11] MEDS: ACCU-CHEK XX (01:50)
[2018-06-11 04:09] LABS: VANCOMYCIN,TROUGH 16.8 ug/ml (10.0-20.0)
[2018-06-11] MEDS: VANCOMYCIN 1 GM 250 ML IVPB (04:19)
[2018-06-11 05:46] LABS: ADD MAN DIFF? NO
[2018-06-11 05:59] LABS: WHITE BLOOD COUNT 4.8 10^3/ul (4.8-10.8)
[2018-06-11 05:59] LABS: BASOPHILS % 0.6 % (0.0-2.0); EOSINOPHILS # 0.1 10^3/ul (0.0-0.5); EOSINOPHILS % 2.1 % (0.0-7.0); HEMATOCRIT 31.3 % (37.0-47.0); HEMOGLOBIN 10.1 g/dl (12.0-16.0); LYMPHOCYTES # 1.4 10^3/ul (0.8-2.9); LYMPHOCYTES % 28.3 % (15.0-51.0); MEAN CORPUSCULAR HGB CONC 32.3 g/dl (32.0-37.0); MEAN CORPUSCULAR VOLUME 89.9 fl (82.0-101.0); MEAN PLATELET VOLUME 9.7 fl (7.4-10.4); MONOCYTE # 0.3 10^3/ul (0.3-0.9); MONOCYTES % 6.6 % (0.0-11.0); NEUTROPHILS % 61.8 % (39.0-77.0); PLATELET COUNT 330 10^3/UL (140-415); RED BLOOD COUNT 3.48 10^6/ul (4.20-5.40); RED CELL DISTRIBUTION WIDTH 13.2 % (11.5-14.5)
[2018-06-11 06:25] LABS: CHOLESTEROL 176 mg/dl (100-200)
[2018-06-11 06:25] LABS: CHOL/HDL RATIO 4.8 RATIO; HDL CHOLESTEROL 36 mg/dl (37-92); LDL CHOLESTEROL,CALCULATED 101 mg/dl; TRIGLYCERIDES 197 mg/dl (0-149)
[2018-06-11 06:37] LABS: ANION GAP 12 (8-16); BLOOD UREA NITROGEN 13 mg/dl (7-20); CALCIUM 8.7 mg/dl (8.4-10.2); CARBON DIOXIDE 24 mmol/L (21-31); CHLORIDE 111 mmol/L (97-110); CREATININE 0.74 mg/dl (0.44-1.00); GLUCOSE 174 mg/dl (70-220); POTASSIUM 4.6 mmol/L (3.5-5.1); SODIUM 142 mmol/L (135-144)
[2018-06-11] MEDS: SOD CHLORIDE 0.9% 1,000 ML IV ×3 (06:56→21:14)
[2018-06-11] MEDS: INSULIN ASPART [NOVOLOG] 3 ML PEN SC ×7 (08:28→20:48)
[2018-06-11] MEDS: LISINOPRIL 10 MG TAB GTB (08:59)
[2018-06-11] MEDS: DOCUSATE SODIUM 100 MG CAP PO (08:59)
[2018-06-11] MEDS: FAMOTIDINE 20 MG TAB PO ×2 (08:59→20:45)
[2018-06-11] MEDS: metFORMIN 500 MG TAB PO ×2 (08:59→17:48)
[2018-06-11] MEDS: ENOXAPARIN 30 MG/0.3 ML SYG SC (08:59)
[2018-06-11] MEDS ORDERED: VANCOMYCIN 750 MG in SOD CHLORIDE 0.9% 150 ML IVPB (16:00)
[2018-06-11] MEDS: ATORVASTATIN 10 MG TAB PO (20:45)
[2018-06-11] MEDS: GLUCOSE GEL 15 GRAM TUBE PO (20:53)
[2018-06-11] MEDS: INSULIN GLARGINE [LANTus] (100 UNITS/ML) SYG SC (21:11)
[2018-06-11] MEDS: CEFTRIAXONE 1 GM/50 ML (PMX) 50 ML IVPB (22:12)
[2018-06-12] MEDS: ACCU-CHEK XX (01:00)
[2018-06-12 06:15] LABS: ADD MAN DIFF? NO
[2018-06-12 06:18] LABS: BASOPHILS % 0.4 % (0.0-2.0); EOSINOPHILS # 0.1 10^3/ul (0.0-0.5); EOSINOPHILS % 2.4 % (0.0-7.0); HEMATOCRIT 32.6 % (37.0-47.0); HEMOGLOBIN 10.1 g/dl (12.0-16.0); LYMPHOCYTES # 1.7 10^3/ul (0.8-2.9); LYMPHOCYTES % 31.4 % (15.0-51.0); MEAN CORPUSCULAR HEMOGLOBIN 28.1 pg (29.0-33.0); MEAN CORPUSCULAR VOLUME 90.8 fl (82.0-101.0); MEAN PLATELET VOLUME 9.7 fl (7.4-10.4); MONOCYTE # 0.4 10^3/ul (0.3-0.9); MONOCYTES % 7.4 % (0.0-11.0); NEUTROPHIL # 3.2 10^3/ul (1.6-7.5); NEUTROPHILS % 57.7 % (39.0-77.0); PLATELET COUNT 361 10^3/UL (140-415); RED BLOOD COUNT 3.59 10^6/ul (4.20-5.40); RED CELL DISTRIBUTION WIDTH 13.2 % (11.5-14.5)
[2018-06-12 06:18] LABS: WHITE BLOOD COUNT 5.5 10^3/ul (4.8-10.8)
[2018-06-12 07:02] LABS: ANION GAP 16 (8-16); BLOOD UREA NITROGEN 12 mg/dl (7-20); CARBON DIOXIDE 25 mmol/L (21-31); CHLORIDE 108 mmol/L (97-110); CREATININE 0.82 mg/dl (0.44-1.00); GLUCOSE 119 mg/dl (70-220); POTASSIUM 4.5 mmol/L (3.5-5.1); SODIUM 144 mmol/L (135-144)
[2018-06-12] MEDS: INSULIN ASPART [NOVOLOG] 3 ML PEN SC ×6 (08:12→20:24)
[2018-06-12] MEDS: metFORMIN 500 MG TAB PO ×2 (08:12→17:54)
[2018-06-12] MEDS: DOCUSATE SODIUM 100 MG CAP PO (08:27)
[2018-06-12] MEDS: FAMOTIDINE 20 MG TAB PO ×2 (08:27→20:24)
[2018-06-12] MEDS: LISINOPRIL 10 MG TAB GTB (08:28)
[2018-06-12] MEDS: ENOXAPARIN 30 MG/0.3 ML SYG SC (08:33)
[2018-06-12] MEDS: SOD CHLORIDE 0.9% 1,000 ML IV (11:39)
[2018-06-12] MEDS: ATORVASTATIN 10 MG TAB PO (20:24)
[2018-06-12] MEDS: INSULIN GLARGINE [LANTus] (100 UNITS/ML) SYG SC (20:29)
[2018-06-13] MEDS: CEFTRIAXONE 1 GM/50 ML (PMX) 50 ML IVPB ×2 (00:27→23:00)
[2018-06-13] MEDS: ACCU-CHEK XX (02:00)
[2018-06-13] MEDS: SOD CHLORIDE 0.9% 1,000 ML IV ×3 (05:19→21:29)
[2018-06-13 06:04] LABS: ADD MAN DIFF? NO
[2018-06-13 06:16] LABS: BASOPHILS % 0.4 % (0.0-2.0); EOSINOPHILS # 0.1 10^3/ul (0.0-0.5); EOSINOPHILS % 2.3 % (0.0-7.0); HEMATOCRIT 31.4 % (37.0-47.0); HEMOGLOBIN 9.9 g/dl (12.0-16.0); LYMPHOCYTES # 1.7 10^3/ul (0.8-2.9); LYMPHOCYTES % 36.4 % (15.0-51.0); MEAN CORPUSCULAR HEMOGLOBIN 28.3 pg (29.0-33.0); MEAN CORPUSCULAR HGB CONC 31.5 g/dl (32.0-37.0); MEAN CORPUSCULAR VOLUME 89.7 fl (82.0-101.0); MEAN PLATELET VOLUME 9.5 fl (7.4-10.4); MONOCYTE # 0.3 10^3/ul (0.3-0.9); MONOCYTES % 7.2 % (0.0-11.0); NEUTROPHIL # 2.5 10^3/ul (1.6-7.5); NEUTROPHILS % 52.9 % (39.0-77.0); PLATELET COUNT 337 10^3/UL (140-415); RED CELL DISTRIBUTION WIDTH 13.2 % (11.5-14.5)
[2018-06-13 06:16] LABS: WHITE BLOOD COUNT 4.8 10^3/ul (4.8-10.8)
[2018-06-13 07:06] LABS: ANION GAP 13 (8-16); BLOOD UREA NITROGEN 12 mg/dl (7-20); CALCIUM 8.8 mg/dl (8.4-10.2); CARBON DIOXIDE 26 mmol/L (21-31); CHLORIDE 110 mmol/L (97-110); CREATININE 0.79 mg/dl (0.44-1.00); GLUCOSE 86 mg/dl (70-220); POTASSIUM 4.5 mmol/L (3.5-5.1); SODIUM 144 mmol/L (135-144)
[2018-06-13] MEDS: INSULIN ASPART [NOVOLOG] 3 ML PEN SC ×7 (08:09→20:30)
[2018-06-13] MEDS: metFORMIN 500 MG TAB PO ×2 (08:10→17:25)
[2018-06-13] MEDS: FAMOTIDINE 20 MG TAB PO ×2 (08:10→20:28)
[2018-06-13] MEDS: LISINOPRIL 10 MG TAB GTB (08:10)
[2018-06-13] MEDS: DOCUSATE SODIUM 100 MG CAP PO (08:10)
[2018-06-13] MEDS: ENOXAPARIN 30 MG/0.3 ML SYG SC (08:15)
[2018-06-13] MEDS: LIDOCAINE 1% (MPF) 5 ML VIAL SC (13:30)
[2018-06-13 14:01] LABS: IRON 63 ug/dl (35-150)
[2018-06-13 14:11] LABS: % IRON SATURATION 24 % SAT (22-52); TOTAL IRON BINDING CAPACITY 260 ug/dl (241-421)
[2018-06-13 14:37] LABS: FERRITIN 85.7 ng/ml (11.1-264.0)
[2018-06-13] MEDS: INSULIN GLARGINE [LANTus] (100 UNITS/ML) SYG SC ×2 (20:00→21:39)
[2018-06-13] MEDS: ATORVASTATIN 10 MG TAB PO (20:28)
[2018-06-14] MEDS: ACCU-CHEK XX (01:32)
[2018-06-14 06:03] LABS: ADD MAN DIFF? NO
[2018-06-14 06:05] LABS: WHITE BLOOD COUNT 6.7 10^3/ul (4.8-10.8)
[2018-06-14 06:05] LABS: BASOPHILS % 0.4 % (0.0-2.0); EOSINOPHILS # 0.1 10^3/ul (0.0-0.5); EOSINOPHILS % 1.8 % (0.0-7.0); HEMATOCRIT 33.8 % (37.0-47.0); HEMOGLOBIN 10.6 g/dl (12.0-16.0); LYMPHOCYTES # 1.9 10^3/ul (0.8-2.9); LYMPHOCYTES % 27.9 % (15.0-51.0); MEAN CORPUSCULAR HEMOGLOBIN 28.5 pg (29.0-33.0); MEAN CORPUSCULAR HGB CONC 31.4 g/dl (32.0-37.0); MEAN CORPUSCULAR VOLUME 90.9 fl (82.0-101.0); MEAN PLATELET VOLUME 9.6 fl (7.4-10.4); MONOCYTE # 0.4 10^3/ul (0.3-0.9); NEUTROPHIL # 4.2 10^3/ul (1.6-7.5); NEUTROPHILS % 63.3 % (39.0-77.0); PLATELET COUNT 345 10^3/UL (140-415); RED BLOOD COUNT 3.72 10^6/ul (4.20-5.40); RED CELL DISTRIBUTION WIDTH 13.3 % (11.5-14.5)
[2018-06-14] MEDS: SOD CHLORIDE 0.9% 1,000 ML IV ×3 (06:05→20:44)
[2018-06-14 07:26] LABS: ANION GAP 12 (8-16); BLOOD UREA NITROGEN 13 mg/dl (7-20); CARBON DIOXIDE 24 mmol/L (21-31); CHLORIDE 111 mmol/L (97-110); CREATININE 0.71 mg/dl (0.44-1.00); GLUCOSE 134 mg/dl (70-220); POTASSIUM 4.3 mmol/L (3.5-5.1); SODIUM 143 mmol/L (135-144)
[2018-06-14] MEDS: INSULIN ASPART [NOVOLOG] 3 ML PEN SC ×7 (08:15→20:56)
[2018-06-14] MEDS: metFORMIN 500 MG TAB PO ×2 (08:39→17:40)
[2018-06-14] MEDS: DOCUSATE SODIUM 100 MG CAP PO (08:39)
[2018-06-14] MEDS: FAMOTIDINE 20 MG TAB PO ×2 (08:39→20:56)
[2018-06-14] MEDS: ENOXAPARIN 30 MG/0.3 ML SYG SC (08:44)
[2018-06-14] MEDS: LISINOPRIL 20 MG TAB GTB (09:09)
[2018-06-14] MEDS ORDERED: HEPARIN (10 UNITS/ML) 5ML SYG IV (17:00)
[2018-06-14] MEDS: ATORVASTATIN 10 MG TAB PO (20:56)
[2018-06-14] MEDS: CEFTRIAXONE 1 GM/50 ML (PMX) 50 ML IVPB (23:19)
[2018-06-15] MEDS: ACCU-CHEK XX (01:16)
[2018-06-15 05:55] LABS: ADD MAN DIFF? NO
[2018-06-15 06:11] LABS: WHITE BLOOD COUNT 6.5 10^3/ul (4.8-10.8)
[2018-06-15 06:11] LABS: BASOPHILS % 0.6 % (0.0-2.0); EOSINOPHILS # 0.2 10^3/ul (0.0-0.5); EOSINOPHILS % 2.9 % (0.0-7.0); HEMATOCRIT 31.1 % (37.0-47.0); HEMOGLOBIN 9.8 g/dl (12.0-16.0); LYMPHOCYTES # 2.4 10^3/ul (0.8-2.9); LYMPHOCYTES % 36.2 % (15.0-51.0); MEAN CORPUSCULAR HEMOGLOBIN 28.5 pg (29.0-33.0); MEAN CORPUSCULAR HGB CONC 31.5 g/dl (32.0-37.0); MEAN CORPUSCULAR VOLUME 90.4 fl (82.0-101.0); MEAN PLATELET VOLUME 9.8 fl (7.4-10.4); MONOCYTE # 0.4 10^3/ul (0.3-0.9); NEUTROPHIL # 3.5 10^3/ul (1.6-7.5); NEUTROPHILS % 53.8 % (39.0-77.0); PLATELET COUNT 318 10^3/UL (140-415); RED BLOOD COUNT 3.44 10^6/ul (4.20-5.40); RED CELL DISTRIBUTION WIDTH 13.5 % (11.5-14.5)
[2018-06-15 06:44] LABS: ANION GAP 14 (8-16); BLOOD UREA NITROGEN 15 mg/dl (7-20); CALCIUM 8.9 mg/dl (8.4-10.2); CARBON DIOXIDE 24 mmol/L (21-31); CHLORIDE 109 mmol/L (97-110); CREATININE 0.78 mg/dl (0.44-1.00); GLUCOSE 122 mg/dl (70-220); POTASSIUM 4.5 mmol/L (3.5-5.1); SODIUM 142 mmol/L (135-144)
[2018-06-15] MEDS: INSULIN ASPART [NOVOLOG] 3 ML PEN SC ×7 (08:03→20:26)
[2018-06-15] MEDS: metFORMIN 500 MG TAB PO ×2 (08:42→17:35)
[2018-06-15] MEDS: FAMOTIDINE 20 MG TAB PO ×2 (08:44→20:23)
[2018-06-15] MEDS: DOCUSATE SODIUM 100 MG CAP PO (08:44)
[2018-06-15] MEDS: LISINOPRIL 20 MG TAB GTB (08:44)
[2018-06-15] MEDS: ENOXAPARIN 30 MG/0.3 ML SYG SC (09:02)
[2018-06-15] MEDS: SOD CHLORIDE 0.9% 1,000 ML IV (11:02)
[2018-06-15] MEDS: ATORVASTATIN 10 MG TAB PO (20:23)
[2018-06-15] MEDS: INSULIN GLARGINE [LANTus] (100 UNITS/ML) SYG SC (20:29)
[2018-06-15] MEDS: CEFTRIAXONE 1 GM/50 ML (PMX) 50 ML IVPB (22:03)
[2018-06-16] MEDS: ACCU-CHEK XX (02:00)
[2018-06-16] MEDS: SOD CHLORIDE 0.9% 1,000 ML IV ×2 (05:35→17:15)
[2018-06-16 06:05] LABS: ADD MAN DIFF? NO
[2018-06-16 06:09] LABS: BASOPHILS % 0.4 % (0.0-2.0); EOSINOPHILS # 0.3 10^3/ul (0.0-0.5); EOSINOPHILS % 4.6 % (0.0-7.0); HEMOGLOBIN 10.2 g/dl (12.0-16.0); LYMPHOCYTES # 2.5 10^3/ul (0.8-2.9); LYMPHOCYTES % 37.5 % (15.0-51.0); MEAN CORPUSCULAR HEMOGLOBIN 28.7 pg (29.0-33.0); MEAN CORPUSCULAR HGB CONC 31.9 g/dl (32.0-37.0); MEAN CORPUSCULAR VOLUME 89.9 fl (82.0-101.0); MEAN PLATELET VOLUME 9.5 fl (7.4-10.4); MONOCYTE # 0.4 10^3/ul (0.3-0.9); MONOCYTES % 6.3 % (0.0-11.0); NEUTROPHIL # 3.4 10^3/ul (1.6-7.5); NEUTROPHILS % 50.6 % (39.0-77.0); PLATELET COUNT 317 10^3/UL (140-415); RED BLOOD COUNT 3.56 10^6/ul (4.20-5.40); RED CELL DISTRIBUTION WIDTH 13.8 % (11.5-14.5)
[2018-06-16 06:09] LABS: WHITE BLOOD COUNT 6.7 10^3/ul (4.8-10.8)
[2018-06-16 06:41] LABS: ANION GAP 11 (8-16); BLOOD UREA NITROGEN 14 mg/dl (7-20); CARBON DIOXIDE 26 mmol/L (21-31); CHLORIDE 111 mmol/L (97-110); CREATININE 0.79 mg/dl (0.44-1.00); GLUCOSE 104 mg/dl (70-220); POTASSIUM 4.4 mmol/L (3.5-5.1); SODIUM 144 mmol/L (135-144)
[2018-06-16] MEDS: INSULIN ASPART [NOVOLOG] 3 ML PEN SC ×8 (07:53→20:33)
[2018-06-16] MEDS: DOCUSATE SODIUM 100 MG CAP PO (09:06)
[2018-06-16] MEDS: metFORMIN 500 MG TAB PO ×2 (09:06→17:32)
[2018-06-16] MEDS: FAMOTIDINE 20 MG TAB PO ×2 (09:07→20:33)
[2018-06-16] MEDS: LISINOPRIL 20 MG TAB GTB (09:07)
[2018-06-16] MEDS: ENOXAPARIN 30 MG/0.3 ML SYG SC (09:09)
[2018-06-16] MEDS: GLUCOSE GEL 15 GRAM TUBE BUCCAL (12:19)
[2018-06-16] MEDS: hydrALAzine 20 MG INJ IV (14:36)
[2018-06-16] MEDS: ATORVASTATIN 10 MG TAB PO (20:33)
[2018-06-16] MEDS: INSULIN GLARGINE [LANTus] (100 UNITS/ML) SYG SC (20:43)
[2018-06-16] MEDS: CEFTRIAXONE 1 GM/50 ML (PMX) 50 ML IVPB (23:17)
[2018-06-17] MEDS: ACCU-CHEK XX (01:12)
[2018-06-17] MEDS: SOD CHLORIDE 0.9% 1,000 ML IV ×2 (05:56→10:45)
[2018-06-17] MEDS: LISINOPRIL 20 MG TAB GTB (08:08)
[2018-06-17] MEDS: FAMOTIDINE 20 MG TAB PO (08:08)
[2018-06-17] MEDS: metFORMIN 500 MG TAB PO (08:08)
[2018-06-17] MEDS: DOCUSATE SODIUM 100 MG CAP PO (08:08)
[2018-06-17] MEDS: INSULIN ASPART [NOVOLOG] 3 ML PEN SC ×4 (08:09→12:47)
[2018-06-17] MEDS: ENOXAPARIN 30 MG/0.3 ML SYG SC (08:12)
[2018-06-18] MEDS ORDERED: INSULIN ASPART [NOVOLOG] 3 ML PEN SC (08:00)
== END 2018-06-17 17:20 | disposition home or self-care (01) | DRG 872 ==
LOC: MS2 21:28 → FTE 17:45
PROC: 02HV33Z Insertion of Infusion Device into Superior Vena Cava, Percutaneous Approach (ICD-10-PCS; principal; 2018-06-14)
PROC: B548ZZA Ultrasonography of Superior Vena Cava, Guidance (ICD-10-PCS; 2018-06-14)
DX: A41.9 Sepsis, unspecified organism (principal); L03.115 Cellulitis of right lower limb; N39.0 Urinary tract infection, site not specified; M86.171 Other acute osteomyelitis, right ankle and foot; E11.621 Type 2 diabetes mellitus with foot ulcer; I12.9 Hypertensive chronic kidney disease with stage 1 through stage 4 chronic kidney disease, or unspecified chronic kidney disease; E11.22 Type 2 diabetes mellitus with diabetic chronic kidney disease; N18.9 Chronic kidney disease, unspecified; E11.40 Type 2 diabetes mellitus with diabetic neuropathy, unspecified; E87.5 Hyperkalemia; E11.610 Type 2 diabetes mellitus with diabetic neuropathic arthropathy; R07.89 Other chest pain; E11.69 Type 2 diabetes mellitus with other specified complication; B95.61 Methicillin susceptible Staphylococcus aureus infection as the cause of diseases classified elsewhere; B95.1 Streptococcus, group B, as the cause of diseases classified elsewhere; B96.89 Other specified bacterial agents as the cause of diseases classified elsewhere; E11.65 Type 2 diabetes mellitus with hyperglycemia; L97.512 Non-pressure chronic ulcer of other part of right foot with fat layer exposed
CPT/HCPCS: 36415; 36569; 71045; 73630; 76937; 80048; 80053; 80061; 80202; 81001; 82728; 82962; 83036; 83540; 83605; 84484; 85025; 85610; 85730; 87040; 87070; 87086; 93005; 99285-25

== ENCOUNTER 2018-10-06 14:49 | Inpatient (IN) | payer MEDICARE, OTHER ==
[2018-10-06 22:47] LABS: ADD MAN DIFF? NO
[2018-10-06 22:49] LABS: BASOPHILS % 0.2 % (0.0-2.0); EOSINOPHILS % 0.1 % (0.0-7.0); HEMATOCRIT 35.3 % (37.0-47.0); HEMOGLOBIN 11.5 g/dl (12.0-16.0); LYMPHOCYTES # 1.5 10^3/ul (0.8-2.9); LYMPHOCYTES % 8.8 % (15.0-51.0); MEAN CORPUSCULAR HEMOGLOBIN 28.9 pg (29.0-33.0); MEAN CORPUSCULAR HGB CONC 32.6 g/dl (32.0-37.0); MEAN CORPUSCULAR VOLUME 88.7 fl (82.0-101.0); MEAN PLATELET VOLUME 11.2 fl (7.4-10.4); MONOCYTES % 5.9 % (0.0-11.0); PLATELET COUNT 266 10^3/UL (140-415); RED BLOOD COUNT 3.98 10^6/ul (4.20-5.40); RED CELL DISTRIBUTION WIDTH 12.9 % (11.5-14.5)
[2018-10-06 22:49] LABS: WHITE BLOOD COUNT 16.7 10^3/ul (4.8-10.8)
[2018-10-06 23:03] LABS: MODE ROOM AIR; MetHgb Venous 0.5 %; Sample Type Blood venous; Site VENOUS LINE; Venous COHb 0.4 %; Venous Fraction OxyHgb 55.1 %; Venous Oxygen Sat 55.6 mmHG (55.0-75.0); Venous Total Hemglobin 11.8 g/dl
[2018-10-06 23:09] LABS: INR 1.05; PARTIAL THROMBOPLASTIN TIME 26.9 Sec (23.0-35.0); PROTIME 13.8 Sec (11.9-14.9); PT RATIO 1.1
[2018-10-06 23:10] LABS: ANION GAP 19 (5-13); BLOOD UREA NITROGEN 28 mg/dl (7-20); CALCIUM 10.3 mg/dl (8.4-10.2); CARBON DIOXIDE 23 mmol/L (21-31); CHLORIDE 89 mmol/L (97-110); CREATININE 1.54 mg/dl (0.44-1.00); Estimated GFR 35 mL/min (>60); SODIUM 131 mmol/L (135-144)
[2018-10-06] MEDS: SODIUM CHLORIDE 0.9% 1L BAG IV* (23:17)
[2018-10-06] MEDS: CEFEPIME 2GM/50 ML (PMX) 50 ML IVPB (23:18)
[2018-10-06 23:19] LABS: TROPONIN-I < 0.012 ng/ml (0.000-0.120)
[2018-10-06] MEDS: ACETAMINOPHEN 500 MG TAB PO (23:19)
[2018-10-06 23:20] LABS: GLUCOSE 585 mg/dl (70-220)
[2018-10-06 23:57] LABS: ERYTHROCYTE SEDIMENTATION RATE 121 mm/Hr (0-30)
[2018-10-07] MEDS ORDERED: ACETAMINOPHEN 325 MG TAB PO
[2018-10-07] MEDS ORDERED: ONDANSETRON 4 MG INJ IV
[2018-10-07] MEDS: VANCOMYCIN 1 GM (PMX) 250 ML IVPB (00:08)
[2018-10-07] MEDS ORDERED: NACL 0.9% 3 ML SYG IV (00:30)
[2018-10-07] MEDS ORDERED: ALBUTEROL/IPRATROPIUM (NEB) 3 ML AMP HHN (00:30)
[2018-10-07] MEDS: INSULIN LISPRO 100 UNIT/ML VIAL SC (01:18)
[2018-10-07 03:57] LABS: LACTIC ACID 2.1 mmol/L (0.5-2.0)
[2018-10-07] MEDS: ACCU-CHEK XX (05:00)
[2018-10-07 05:14] LABS: ADD MAN DIFF? NO
[2018-10-07 05:18] LABS: WHITE BLOOD COUNT 11.5 10^3/ul (4.8-10.8)
[2018-10-07 05:18] LABS: BASOPHILS % 0.3 % (0.0-2.0); EOSINOPHILS # 0.1 10^3/ul (0.0-0.5); EOSINOPHILS % 1.1 % (0.0-7.0); HEMATOCRIT 28.9 % (37.0-47.0); HEMOGLOBIN 9.4 g/dl (12.0-16.0); LYMPHOCYTES # 1.3 10^3/ul (0.8-2.9); LYMPHOCYTES % 11.6 % (15.0-51.0); MEAN CORPUSCULAR HGB CONC 32.5 g/dl (32.0-37.0); MEAN CORPUSCULAR VOLUME 89.2 fl (82.0-101.0); MEAN PLATELET VOLUME 10.9 fl (7.4-10.4); MONOCYTE # 0.8 10^3/ul (0.3-0.9); MONOCYTES % 6.9 % (0.0-11.0); NEUTROPHIL # 9.1 10^3/ul (1.6-7.5); NEUTROPHILS % 79.3 % (39.0-77.0); PLATELET COUNT 230 10^3/UL (140-415); RED BLOOD COUNT 3.24 10^6/ul (4.20-5.40); RED CELL DISTRIBUTION WIDTH 13.1 % (11.5-14.5)
[2018-10-07] MEDS: SOD CHLORIDE 0.9% 1,000 ML IV ×3 (05:25→16:26)
[2018-10-07 05:30] LABS: HEMOGLOBIN A1C 11.8 % (0-5.9)
[2018-10-07] MEDS ORDERED: GLUCOSE GEL 15 GRAM TUBE BUCCAL (05:30)
[2018-10-07] MEDS ORDERED: GLUCAGON 1 MG INJ IM (05:30)
[2018-10-07] MEDS ORDERED: GLUCOSE GEL 15 GRAM TUBE PO ×2 (05:30)
[2018-10-07] MEDS ORDERED: DEXTROSE 50% 50 ML SYRINGE IV ×2 (05:30)
[2018-10-07 05:34] LABS: ANION GAP 13 (5-13); BLOOD UREA NITROGEN 22 mg/dl (7-20); CALCIUM 8.9 mg/dl (8.4-10.2); CARBON DIOXIDE 23 mmol/L (21-31); CHLORIDE 102 mmol/L (97-110); CREATININE 1.18 mg/dl (0.44-1.00); Estimated GFR 47 mL/min (>60); GLUCOSE 323 mg/dl (70-220); SODIUM 138 mmol/L (135-144)
[2018-10-07] MEDS: VANCOMYCIN 1 GM 250 ML IVPB (06:05)
[2018-10-07] MEDS ORDERED: HEPARIN 5,000 UNIT/0.5 ML VIAL ×2 (08:01→21:00)
[2018-10-07] MEDS: ACETAMINOPHEN 325 MG TAB PO (08:04)
[2018-10-07] MEDS: CEFEPIME 1GM/50 ML (PMX) 50 ML IVPB ×2 (08:04→21:06)
[2018-10-07] MEDS: INSULIN ASPART [NOVOLOG] 3 ML PEN SC ×5 (08:33→21:11)
[2018-10-07] MEDS: HEPARIN 5,000 UNIT/1 ML VIAL SC ×2 (08:33→21:09)
[2018-10-07] MEDS ORDERED: VANCOMYCIN IV PER PHARMACY XX (09:00)
[2018-10-07] MEDS: HYDROCODONE/APAP (5/325) TAB PO (16:18)
[2018-10-07] MEDS ORDERED: INSULIN ASPART [NOVOLOG] 3 ML PEN SC (17:30)
[2018-10-07 17:42] LABS: ADD UMIC YES; UR ASCORBIC ACID NEGATIVE (NEGATIVE); UR BACTERIA FEW /HPF (NONE SEEN); UR BILIRUBIN (Dip) NEGATIVE (NEGATIVE); UR BLOOD (Dip) 1+ mg/dL (NEGATIVE); UR BUDDING YEAST MANY /HPF (NONE SEEN); UR CLARITY CLOUDY (CLEAR); UR COLOR YELLOW (YELLOW); UR GLUCOSE (Dip) 3+ mg/dL (NEGATIVE); UR KETONES (Dip) TRACE mg/dL (NEGATIVE); UR LEUKOCYTE ESTERASE (Dip) NEGATIVE Leu/ul (NEGATIVE); UR NITRITE (Dip) NEGATIVE (NEGATIVE); UR RBC 77 /HPF (0-5); UR SPECIFIC GRAVITY (Dip) 1.018 (1.003-1.030); UR SQUAMOUS EPITHELIAL CELL FEW /HPF (FEW); UR TOTAL PROTEIN (Dip) NEGATIVE (NEGATIVE); UR UROBILINOGEN (Dip) NEGATIVE (NEGATIVE); UR WBC 37 /HPF (0-5)
[2018-10-07] MEDS: metFORMIN 500 MG TAB PO (17:58)
[2018-10-07] MEDS: morphine 2 MG INJ IV (18:31)
[2018-10-07] MEDS ORDERED: INSULIN GLARGINE [LANtus] 3 ML PEN SC (21:00)
[2018-10-07] MEDS: INSULIN GLARGINE [LANTus] (100 UNITS/ML) SYG SC (21:10)
[2018-10-08] MEDS ORDERED: ACCU-CHEK XX (02:00)
[2018-10-08] MEDS: ACCU-CHEK XX (02:33)
[2018-10-08 05:15] LABS: ADD MAN DIFF? NO
[2018-10-08 05:22] LABS: BASOPHILS % 0.3 % (0.0-2.0); EOSINOPHILS # 0.2 10^3/ul (0.0-0.5); EOSINOPHILS % 2.1 % (0.0-7.0); HEMATOCRIT 28.7 % (37.0-47.0); HEMOGLOBIN 9.4 g/dl (12.0-16.0); LYMPHOCYTES % 9.1 % (15.0-51.0); MEAN CORPUSCULAR HEMOGLOBIN 29.6 pg (29.0-33.0); MEAN CORPUSCULAR HGB CONC 32.8 g/dl (32.0-37.0); MEAN CORPUSCULAR VOLUME 90.3 fl (82.0-101.0); MEAN PLATELET VOLUME 10.5 fl (7.4-10.4); MONOCYTE # 0.9 10^3/ul (0.3-0.9); MONOCYTES % 7.9 % (0.0-11.0); NEUTROPHIL # 8.9 10^3/ul (1.6-7.5); NEUTROPHILS % 79.6 % (39.0-77.0); PLATELET COUNT 246 10^3/UL (140-415); RED BLOOD COUNT 3.18 10^6/ul (4.20-5.40)
[2018-10-08 05:22] LABS: WHITE BLOOD COUNT 11.1 10^3/ul (4.8-10.8)
[2018-10-08] MEDS: VANCOMYCIN 1.25 GM in SOD CHLORIDE 0.9% 250 ML IVPB (05:30)
[2018-10-08 05:43] LABS: ALANINE AMINOTRANSFERASE 21 IU/L (13-69); ALBUMIN 3.2 g/dl (3.3-4.9); ALBUMIN/GLOBULIN RATIO 0.86; ALKALINE PHOSPHATASE 198 IU/L (42-121); ANION GAP 11 (5-13); ASPARTATE AMINO TRANSFERASE 17 IU/L (15-46); BILIRUBIN,INDIRECT 0.1 mg/dl (0-1.1); BILIRUBIN,TOTAL 0.1 mg/dl (0.2-1.3); BLOOD UREA NITROGEN 14 mg/dl (7-20); CALCIUM 9.2 mg/dl (8.4-10.2); CARBON DIOXIDE 20 mmol/L (21-31); CHLORIDE 104 mmol/L (97-110); CREATININE 0.81 mg/dl (0.44-1.00); Estimated GFR > 60 mL/min (>60); GLUCOSE 262 mg/dl (70-220); MAGNESIUM 1.9 mg/dl (1.7-2.5); POTASSIUM 4.1 mmol/L (3.5-5.1); SODIUM 135 mmol/L (135-144); TOTAL PROTEIN 6.9 g/dl (6.1-8.1)
[2018-10-08] MEDS: INSULIN ASPART [NOVOLOG] 3 ML PEN SC ×7 (07:55→20:48)
[2018-10-08] MEDS ORDERED: HEPARIN 5,000 UNIT/0.5 ML VIAL ×2 (08:02→20:41)
[2018-10-08] MEDS: metFORMIN 500 MG TAB PO ×2 (08:12→17:10)
[2018-10-08] MEDS: HYDROCODONE/APAP (5/325) TAB PO ×2 (08:13→08:18)
[2018-10-08] MEDS: HEPARIN 5,000 UNIT/1 ML VIAL SC ×2 (09:05→21:13)
[2018-10-08] MEDS: LISINOPRIL 5 MG TAB PO (09:13)
[2018-10-08] MEDS: CEFEPIME 1GM/50 ML (PMX) 50 ML IVPB ×2 (09:15→20:55)
[2018-10-08] MEDS: LINAGLIPTIN 5 MG TABLET PO (09:18)
[2018-10-08] MEDS: FLUCONAZOLE 100 MG TAB PO (17:10)
[2018-10-08] MEDS: VANCOMYCIN 750 MG in SOD CHLORIDE 0.9% 150 ML IVPB (17:10)
[2018-10-08] MEDS: morphine 2 MG INJ IV (19:35)
[2018-10-08] MEDS: INSULIN GLARGINE [LANTus] (100 UNITS/ML) SYG SC (20:52)
[2018-10-08] MEDS: ACETAMINOPHEN 325 MG TAB PO (23:40)
[2018-10-09] MEDS: ACCU-CHEK XX (02:00)
[2018-10-09] MEDS: VANCOMYCIN 750 MG in SOD CHLORIDE 0.9% 150 ML IVPB ×2 (05:15→18:53)
[2018-10-09] MEDS: HYDROCODONE/APAP (5/325) TAB PO ×2 (05:28→19:50)
[2018-10-09] MEDS ORDERED: HEPARIN 5,000 UNIT/0.5 ML VIAL ×2 (07:43→20:51)
[2018-10-09] MEDS: CEFEPIME 1GM/50 ML (PMX) 50 ML IVPB ×2 (08:00→21:40)
[2018-10-09] MEDS: LINAGLIPTIN 5 MG TABLET PO (08:01)
[2018-10-09] MEDS: FLUCONAZOLE 100 MG TAB PO (08:01)
[2018-10-09] MEDS: metFORMIN 500 MG TAB PO ×2 (08:01→17:48)
[2018-10-09] MEDS: LISINOPRIL 5 MG TAB PO (08:02)
[2018-10-09] MEDS: HEPARIN 5,000 UNIT/1 ML VIAL SC ×2 (08:08→21:01)
[2018-10-09] MEDS: INSULIN ASPART [NOVOLOG] 3 ML PEN SC ×7 (08:08→20:54)
[2018-10-09 17:45] LABS: VANCOMYCIN,TROUGH 17.5 ug/ml (10.0-20.0)
[2018-10-09] MEDS: INSULIN GLARGINE [LANTus] (100 UNITS/ML) SYG SC (21:00)
[2018-10-10] MEDS: ACCU-CHEK XX (02:00)
[2018-10-10 05:22] LABS: ADD MAN DIFF? NO
[2018-10-10 05:25] LABS: WHITE BLOOD COUNT 9.9 10^3/ul (4.8-10.8)
[2018-10-10 05:25] LABS: BASOPHILS % 0.4 % (0.0-2.0); EOSINOPHILS # 0.2 10^3/ul (0.0-0.5); EOSINOPHILS % 2.3 % (0.0-7.0); HEMATOCRIT 29.8 % (37.0-47.0); HEMOGLOBIN 9.6 g/dl (12.0-16.0); LYMPHOCYTES # 1.3 10^3/ul (0.8-2.9); LYMPHOCYTES % 13.5 % (15.0-51.0); MEAN CORPUSCULAR HEMOGLOBIN 28.9 pg (29.0-33.0); MEAN CORPUSCULAR HGB CONC 32.2 g/dl (32.0-37.0); MEAN CORPUSCULAR VOLUME 89.8 fl (82.0-101.0); MEAN PLATELET VOLUME 10.1 fl (7.4-10.4); MONOCYTE # 0.9 10^3/ul (0.3-0.9); MONOCYTES % 8.7 % (0.0-11.0); NEUTROPHIL # 7.3 10^3/ul (1.6-7.5); NEUTROPHILS % 73.3 % (39.0-77.0); PLATELET COUNT 298 10^3/UL (140-415); RED BLOOD COUNT 3.32 10^6/ul (4.20-5.40); RED CELL DISTRIBUTION WIDTH 13.4 % (11.5-14.5)
[2018-10-10 05:48] LABS: ANION GAP 9 (5-13); BLOOD UREA NITROGEN 10 mg/dl (7-20); CALCIUM 9.8 mg/dl (8.4-10.2); CARBON DIOXIDE 27 mmol/L (21-31); CHLORIDE 101 mmol/L (97-110); CREATININE 0.81 mg/dl (0.44-1.00); Estimated GFR > 60 mL/min (>60); GLUCOSE 142 mg/dl (70-220); POTASSIUM 3.8 mmol/L (3.5-5.1); SODIUM 137 mmol/L (135-144)
[2018-10-10] MEDS: VANCOMYCIN 750 MG in SOD CHLORIDE 0.9% 150 ML IVPB ×2 (06:50→16:57)
[2018-10-10] MEDS ORDERED: HEPARIN 5,000 UNIT/0.5 ML VIAL ×2 (07:40→20:13)
[2018-10-10] MEDS: FLUCONAZOLE 100 MG TAB PO (07:47)
[2018-10-10] MEDS: metFORMIN 500 MG TAB PO ×2 (07:47→16:57)
[2018-10-10] MEDS: LINAGLIPTIN 5 MG TABLET PO (07:47)
[2018-10-10] MEDS: LISINOPRIL 5 MG TAB PO (07:47)
[2018-10-10] MEDS: CEFEPIME 1GM/50 ML (PMX) 50 ML IVPB ×2 (07:48→20:15)
[2018-10-10] MEDS: INSULIN ASPART [NOVOLOG] 3 ML PEN SC ×7 (07:59→20:19)
[2018-10-10] MEDS: HEPARIN 5,000 UNIT/1 ML VIAL SC ×2 (08:00→20:23)
[2018-10-10] MEDS: ACETAMINOPHEN 325 MG TAB PO (15:46)
[2018-10-10] MEDS: INSULIN GLARGINE [LANTus] (100 UNITS/ML) SYG SC (20:22)
[2018-10-11] MEDS: ACCU-CHEK XX (02:00)
[2018-10-11 06:12] LABS: ADD MAN DIFF? NO
[2018-10-11 06:23] LABS: BASOPHILS % 0.3 % (0.0-2.0); EOSINOPHILS # 0.1 10^3/ul (0.0-0.5); EOSINOPHILS % 1.3 % (0.0-7.0); HEMATOCRIT 29.2 % (37.0-47.0); HEMOGLOBIN 9.3 g/dl (12.0-16.0); LYMPHOCYTES # 1.2 10^3/ul (0.8-2.9); LYMPHOCYTES % 12.2 % (15.0-51.0); MEAN CORPUSCULAR HEMOGLOBIN 28.6 pg (29.0-33.0); MEAN CORPUSCULAR HGB CONC 31.8 g/dl (32.0-37.0); MEAN CORPUSCULAR VOLUME 89.8 fl (82.0-101.0); MEAN PLATELET VOLUME 11.5 fl (7.4-10.4); MONOCYTE # 0.9 10^3/ul (0.3-0.9); MONOCYTES % 8.9 % (0.0-11.0); NEUTROPHIL # 7.4 10^3/ul (1.6-7.5); NEUTROPHILS % 75.6 % (39.0-77.0); PLATELET COUNT 291 10^3/UL (140-415); RED BLOOD COUNT 3.25 10^6/ul (4.20-5.40); RED CELL DISTRIBUTION WIDTH 13.3 % (11.5-14.5)
[2018-10-11 06:23] LABS: WHITE BLOOD COUNT 9.8 10^3/ul (4.8-10.8)
[2018-10-11] MEDS: VANCOMYCIN 750 MG in SOD CHLORIDE 0.9% 150 ML IVPB (06:37)
[2018-10-11 07:07] LABS: ANION GAP 9 (5-13); BLOOD UREA NITROGEN 10 mg/dl (7-20); CALCIUM 9.2 mg/dl (8.4-10.2); CARBON DIOXIDE 26 mmol/L (21-31); CHLORIDE 100 mmol/L (97-110); Estimated GFR > 60 mL/min (>60); GLUCOSE 158 mg/dl (70-220); POTASSIUM 4.9 mmol/L (3.5-5.1); SODIUM 135 mmol/L (135-144)
[2018-10-11] MEDS: metFORMIN 500 MG TAB PO ×2 (07:54→17:23)
[2018-10-11] MEDS: INSULIN ASPART [NOVOLOG] 3 ML PEN SC ×7 (08:01→21:00)
[2018-10-11] MEDS ORDERED: HEPARIN 5,000 UNIT/0.5 ML VIAL ×2 (08:40→22:00)
[2018-10-11] MEDS: LINAGLIPTIN 5 MG TABLET PO (08:42)
[2018-10-11] MEDS: FLUCONAZOLE 100 MG TAB PO (08:42)
[2018-10-11] MEDS: LISINOPRIL 5 MG TAB PO (08:43)
[2018-10-11] MEDS: CEFEPIME 1GM/50 ML (PMX) 50 ML IVPB (08:43)
[2018-10-11] MEDS: HEPARIN 5,000 UNIT/1 ML VIAL SC ×2 (08:47→22:30)
[2018-10-11] MEDS: VANCOMYCIN 500MG/NS (PMX) 100 ML IVPB (17:57)
[2018-10-11] MEDS: INSULIN GLARGINE [LANTus] (100 UNITS/ML) SYG SC (22:12)
[2018-10-12] MEDS: CEFEPIME 1GM/50 ML (PMX) 50 ML IVPB ×3 (00:38→20:32)
[2018-10-12] MEDS: ACCU-CHEK XX (02:00)
[2018-10-12] MEDS: VANCOMYCIN 500MG/NS (PMX) 100 ML IVPB ×2 (05:14→18:07)
[2018-10-12 06:11] LABS: ADD MAN DIFF? NO
[2018-10-12 06:13] LABS: WHITE BLOOD COUNT 8.4 10^3/ul (4.8-10.8)
[2018-10-12 06:13] LABS: BASOPHILS % 0.2 % (0.0-2.0); EOSINOPHILS # 0.2 10^3/ul (0.0-0.5); EOSINOPHILS % 2.8 % (0.0-7.0); HEMATOCRIT 30.1 % (37.0-47.0); HEMOGLOBIN 9.6 g/dl (12.0-16.0); LYMPHOCYTES # 1.6 10^3/ul (0.8-2.9); LYMPHOCYTES % 19.5 % (15.0-51.0); MEAN CORPUSCULAR HEMOGLOBIN 28.7 pg (29.0-33.0); MEAN CORPUSCULAR HGB CONC 31.9 g/dl (32.0-37.0); MEAN CORPUSCULAR VOLUME 90.1 fl (82.0-101.0); MEAN PLATELET VOLUME 10.2 fl (7.4-10.4); MONOCYTE # 0.8 10^3/ul (0.3-0.9); MONOCYTES % 9.6 % (0.0-11.0); NEUTROPHIL # 5.5 10^3/ul (1.6-7.5); NEUTROPHILS % 65.1 % (39.0-77.0); PLATELET COUNT 394 10^3/UL (140-415); RED BLOOD COUNT 3.34 10^6/ul (4.20-5.40); RED CELL DISTRIBUTION WIDTH 13.4 % (11.5-14.5)
[2018-10-12 06:40] LABS: ANION GAP 11 (5-13); BLOOD UREA NITROGEN 9 mg/dl (7-20); CALCIUM 9.5 mg/dl (8.4-10.2); CARBON DIOXIDE 28 mmol/L (21-31); CHLORIDE 101 mmol/L (97-110); CREATININE 0.79 mg/dl (0.44-1.00); Estimated GFR > 60 mL/min (>60); GLUCOSE 130 mg/dl (70-220); POTASSIUM 3.9 mmol/L (3.5-5.1); SODIUM 140 mmol/L (135-144)
[2018-10-12] MEDS: INSULIN ASPART [NOVOLOG] 3 ML PEN SC ×7 (07:30→20:38)
[2018-10-12] MEDS ORDERED: HEPARIN 5,000 UNIT/0.5 ML VIAL ×2 (07:42→20:14)
[2018-10-12] MEDS: metFORMIN 500 MG TAB PO ×2 (08:00→17:40)
[2018-10-12] MEDS: FLUCONAZOLE 100 MG TAB PO (09:00)
[2018-10-12] MEDS: LINAGLIPTIN 5 MG TABLET PO (09:00)
[2018-10-12] MEDS: HEPARIN 5,000 UNIT/1 ML VIAL SC ×2 (09:00→20:36)
[2018-10-12] MEDS: LISINOPRIL 5 MG TAB PO (09:00)
[2018-10-12] MEDS: INSULIN GLARGINE [LANTus] (100 UNITS/ML) SYG SC (20:37)
[2018-10-12] MEDS: HYDROCODONE/APAP (5/325) TAB PO (20:44)
[2018-10-13] MEDS: ACCU-CHEK XX (02:00)
[2018-10-13 04:53] LABS: VANCOMYCIN,TROUGH 11.6 ug/ml (10.0-20.0)
[2018-10-13] MEDS: VANCOMYCIN 500MG/NS (PMX) 100 ML IVPB (06:09)
[2018-10-13] MEDS ORDERED: HEPARIN 5,000 UNIT/0.5 ML VIAL ×2 (07:35→20:24)
[2018-10-13] MEDS: INSULIN ASPART [NOVOLOG] 3 ML PEN SC ×8 (08:00→20:46)
[2018-10-13] MEDS: HEPARIN 5,000 UNIT/1 ML VIAL SC ×2 (08:08→20:45)
[2018-10-13] MEDS: LISINOPRIL 5 MG TAB PO (08:11)
[2018-10-13] MEDS: CEFEPIME 1GM/50 ML (PMX) 50 ML IVPB (08:11)
[2018-10-13] MEDS: metFORMIN 500 MG TAB PO ×2 (08:11→17:38)
[2018-10-13] MEDS: LINAGLIPTIN 5 MG TABLET PO (08:11)
[2018-10-13] MEDS: FLUCONAZOLE 100 MG TAB PO (08:11)
[2018-10-13] MEDS: CIPROFLOXACIN 500 MG TAB PO (17:38)
[2018-10-13] MEDS: VANCOMYCIN 650 MG in SOD CHLORIDE 0.9% 150 ML IVPB (17:43)
[2018-10-13] MEDS: INSULIN GLARGINE [LANTus] (100 UNITS/ML) SYG SC (20:46)
[2018-10-14] MEDS: ACCU-CHEK XX ×2 (01:50→20:12)
[2018-10-14] MEDS: VANCOMYCIN 650 MG in SOD CHLORIDE 0.9% 150 ML IVPB ×2 (05:18→17:41)
[2018-10-14] MEDS: CIPROFLOXACIN 500 MG TAB PO ×2 (05:18→17:41)
[2018-10-14 06:08] LABS: BLOOD UREA NITROGEN 9 mg/dl (7-20)
[2018-10-14 06:08] LABS: CREATININE 0.69 mg/dl (0.44-1.00)
[2018-10-14] MEDS ORDERED: HEPARIN 5,000 UNIT/0.5 ML VIAL ×2 (07:44→19:59)
[2018-10-14] MEDS: INSULIN ASPART [NOVOLOG] 3 ML PEN SC ×7 (08:00→20:12)
[2018-10-14] MEDS: HEPARIN 5,000 UNIT/1 ML VIAL SC ×2 (08:21→20:16)
[2018-10-14] MEDS: LINAGLIPTIN 5 MG TABLET PO (08:21)
[2018-10-14] MEDS: LISINOPRIL 5 MG TAB PO (08:22)
[2018-10-14] MEDS: FLUCONAZOLE 100 MG TAB PO (08:22)
[2018-10-14] MEDS: metFORMIN 500 MG TAB PO ×2 (08:23→17:41)
[2018-10-14] MEDS: HYDROCODONE/APAP (5/325) TAB PO (15:28)
[2018-10-14] MEDS: INSULIN GLARGINE [LANTus] (100 UNITS/ML) SYG SC (20:47)
[2018-10-15] MEDS: CIPROFLOXACIN 500 MG TAB PO ×2 (05:34→17:50)
[2018-10-15] MEDS: VANCOMYCIN 650 MG in SOD CHLORIDE 0.9% 150 ML IVPB ×2 (05:34→17:50)
[2018-10-15 07:49] LABS: ANION GAP 6 (5-13); BLOOD UREA NITROGEN 10 mg/dl (7-20); CALCIUM 8.8 mg/dl (8.4-10.2); CARBON DIOXIDE 29 mmol/L (21-31); CHLORIDE 102 mmol/L (97-110); Estimated GFR > 60 mL/min (>60); GLUCOSE 149 mg/dl (70-220); POTASSIUM 4.3 mmol/L (3.5-5.1); SODIUM 137 mmol/L (135-144)
[2018-10-15] MEDS: INSULIN ASPART [NOVOLOG] 3 ML PEN SC ×7 (08:00→20:48)
[2018-10-15] MEDS ORDERED: HEPARIN 5,000 UNIT/0.5 ML VIAL ×2 (08:10→20:08)
[2018-10-15] MEDS: FLUCONAZOLE 100 MG TAB PO (08:18)
[2018-10-15] MEDS: LINAGLIPTIN 5 MG TABLET PO (08:18)
[2018-10-15] MEDS: LISINOPRIL 5 MG TAB PO (08:21)
[2018-10-15] MEDS: HEPARIN 5,000 UNIT/1 ML VIAL SC ×2 (08:26→20:52)
[2018-10-15] MEDS: metFORMIN 500 MG TAB PO ×2 (08:42→17:50)
[2018-10-15 17:35] LABS: VANCOMYCIN,TROUGH 16.5 ug/ml (10.0-20.0)
[2018-10-15] MEDS ORDERED: INSULIN GLARGINE [LANTus] (100 UNITS/ML) SYG SC (20:00)
[2018-10-15] MEDS: INSULIN GLARGINE [LANTus] (100 UNITS/ML) SYG SC (21:03)
[2018-10-16] MEDS: ACCU-CHEK XX (02:00)
[2018-10-16] MEDS: CIPROFLOXACIN 500 MG TAB PO ×2 (06:02→17:25)
[2018-10-16] MEDS: VANCOMYCIN 650 MG in SOD CHLORIDE 0.9% 150 ML IVPB ×2 (06:03→17:31)
[2018-10-16 06:21] LABS: ADD MAN DIFF? NO
[2018-10-16 06:28] LABS: WHITE BLOOD COUNT 8.4 10^3/ul (4.8-10.8)
[2018-10-16 06:28] LABS: BASOPHILS % 0.4 % (0.0-2.0); EOSINOPHILS # 0.2 10^3/ul (0.0-0.5); EOSINOPHILS % 1.8 % (0.0-7.0); HEMATOCRIT 30.9 % (37.0-47.0); HEMOGLOBIN 9.7 g/dl (12.0-16.0); LYMPHOCYTES # 1.9 10^3/ul (0.8-2.9); LYMPHOCYTES % 22.9 % (15.0-51.0); MEAN CORPUSCULAR HGB CONC 31.4 g/dl (32.0-37.0); MEAN CORPUSCULAR VOLUME 92.2 fl (82.0-101.0); MEAN PLATELET VOLUME 9.8 fl (7.4-10.4); MONOCYTE # 0.6 10^3/ul (0.3-0.9); MONOCYTES % 7.3 % (0.0-11.0); NEUTROPHIL # 5.5 10^3/ul (1.6-7.5); NEUTROPHILS % 65.7 % (39.0-77.0); PLATELET COUNT 487 10^3/UL (140-415); RED BLOOD COUNT 3.35 10^6/ul (4.20-5.40); RED CELL DISTRIBUTION WIDTH 13.7 % (11.5-14.5)
[2018-10-16 07:10] LABS: ANION GAP 10 (5-13); BLOOD UREA NITROGEN 13 mg/dl (7-20); CALCIUM 8.8 mg/dl (8.4-10.2); CARBON DIOXIDE 26 mmol/L (21-31); CHLORIDE 102 mmol/L (97-110); CREATININE 0.88 mg/dl (0.44-1.00); Estimated GFR > 60 mL/min (>60); GLUCOSE 151 mg/dl (70-220); POTASSIUM 4.7 mmol/L (3.5-5.1); SODIUM 138 mmol/L (135-144)
[2018-10-16] MEDS ORDERED: HEPARIN 5,000 UNIT/0.5 ML VIAL ×2 (07:49→20:03)
[2018-10-16] MEDS: INSULIN ASPART [NOVOLOG] 3 ML PEN SC ×7 (08:00→21:00)
[2018-10-16] MEDS: metFORMIN 500 MG TAB PO ×2 (08:08→17:25)
[2018-10-16] MEDS: LISINOPRIL 5 MG TAB PO (08:08)
[2018-10-16] MEDS: LINAGLIPTIN 5 MG TABLET PO (08:08)
[2018-10-16] MEDS: FLUCONAZOLE 100 MG TAB PO (08:08)
[2018-10-16] MEDS: HEPARIN 5,000 UNIT/1 ML VIAL SC ×2 (08:10→21:34)
[2018-10-16] MEDS: HYDROCODONE/APAP (5/325) TAB PO (17:32)
[2018-10-16] MEDS: ONDANSETRON 4 MG INJ IV (19:26)
[2018-10-16] MEDS: INSULIN GLARGINE [LANTus] (100 UNITS/ML) SYG SC (21:35)
[2018-10-17] MEDS: ACCU-CHEK XX (01:50)
[2018-10-17] MEDS: CIPROFLOXACIN 500 MG TAB PO ×2 (06:06→17:33)
[2018-10-17] MEDS: VANCOMYCIN 650 MG in SOD CHLORIDE 0.9% 150 ML IVPB (06:35)
[2018-10-17 06:49] LABS: BLOOD UREA NITROGEN 15 mg/dl (7-20)
[2018-10-17 06:49] LABS: CREATININE 1.14 mg/dl (0.44-1.00)
[2018-10-17] MEDS: INSULIN ASPART [NOVOLOG] 3 ML PEN SC ×7 (07:59→20:34)
[2018-10-17] MEDS ORDERED: HEPARIN 5,000 UNIT/0.5 ML VIAL ×2 (09:18→19:31)
[2018-10-17] MEDS: LINAGLIPTIN 5 MG TABLET PO (09:19)
[2018-10-17] MEDS: FLUCONAZOLE 100 MG TAB PO (09:19)
[2018-10-17] MEDS: LISINOPRIL 5 MG TAB PO (09:20)
[2018-10-17] MEDS: HEPARIN 5,000 UNIT/1 ML VIAL SC ×2 (09:21→20:48)
[2018-10-17] MEDS: metFORMIN 500 MG TAB PO (09:28)
[2018-10-17 18:19] LABS: VANCOMYCIN,TROUGH 18.3 ug/ml (10.0-20.0)
[2018-10-17] MEDS: INSULIN GLARGINE [LANTus] (100 UNITS/ML) SYG SC (20:48)
[2018-10-17] MEDS: VANCOMYCIN 500MG/NS (PMX) 100 ML IVPB (20:51)
[2018-10-18] MEDS: ACCU-CHEK XX (02:00)
[2018-10-18] MEDS: CIPROFLOXACIN 500 MG TAB PO ×2 (05:45→17:33)
[2018-10-18] MEDS: INSULIN ASPART [NOVOLOG] 3 ML PEN SC ×7 (08:00→20:17)
[2018-10-18] MEDS ORDERED: HEPARIN 5,000 UNIT/0.5 ML VIAL ×2 (08:48→20:02)
[2018-10-18] MEDS: LINAGLIPTIN 5 MG TABLET PO (08:52)
[2018-10-18] MEDS: FLUCONAZOLE 100 MG TAB PO (08:52)
[2018-10-18] MEDS: HEPARIN 5,000 UNIT/1 ML VIAL SC ×2 (08:53→20:18)
[2018-10-18] MEDS: LISINOPRIL 5 MG TAB PO (08:53)
[2018-10-18] MEDS: VANCOMYCIN 500MG/NS (PMX) 100 ML IVPB ×2 (09:49→20:14)
[2018-10-18] MEDS ORDERED: morphine LIQ (10 MG/5 ML) CUP PO (14:00)
[2018-10-18] MEDS: INSULIN GLARGINE [LANTus] (100 UNITS/ML) SYG SC (20:17)
[2018-10-19] MEDS: ACCU-CHEK XX (01:11)
[2018-10-19] MEDS: CIPROFLOXACIN 500 MG TAB PO ×2 (05:40→17:43)
[2018-10-19 07:03] LABS: BLOOD UREA NITROGEN 13 mg/dl (7-20)
[2018-10-19 07:03] LABS: CREATININE 1.08 mg/dl (0.44-1.00)
[2018-10-19] MEDS ORDERED: HEPARIN 5,000 UNIT/0.5 ML VIAL ×2 (07:57→20:04)
[2018-10-19] MEDS: LINAGLIPTIN 5 MG TABLET PO (08:05)
[2018-10-19] MEDS: LISINOPRIL 5 MG TAB PO (08:06)
[2018-10-19] MEDS: FLUCONAZOLE 100 MG TAB PO (08:06)
[2018-10-19] MEDS: INSULIN ASPART [NOVOLOG] 3 ML PEN SC ×7 (08:07→20:11)
[2018-10-19] MEDS: VANCOMYCIN 500MG/NS (PMX) 100 ML IVPB ×2 (08:13→20:11)
[2018-10-19] MEDS: HEPARIN 5,000 UNIT/1 ML VIAL SC ×2 (08:22→20:14)
[2018-10-19] MEDS: LIDOCAINE 1% (MPF) 5 ML VIAL SC (17:40)
[2018-10-19 19:36] LABS: VANCOMYCIN,TROUGH 14.9 ug/ml (10.0-20.0)
[2018-10-19] MEDS: INSULIN GLARGINE [LANTus] (100 UNITS/ML) SYG SC (20:14)
[2018-10-20] MEDS: ACCU-CHEK XX (02:00)
[2018-10-20] MEDS: CIPROFLOXACIN 500 MG TAB PO ×2 (05:42→17:47)
[2018-10-20 06:03] LABS: ADD MAN DIFF? NO
[2018-10-20 06:15] LABS: BASOPHILS % 0.7 % (0.0-2.0); EOSINOPHILS # 0.2 10^3/ul (0.0-0.5); EOSINOPHILS % 2.5 % (0.0-7.0); HEMATOCRIT 33.2 % (37.0-47.0); HEMOGLOBIN 10.3 g/dl (12.0-16.0); LYMPHOCYTES # 1.6 10^3/ul (0.8-2.9); LYMPHOCYTES % 25.5 % (15.0-51.0); MEAN CORPUSCULAR HEMOGLOBIN 28.5 pg (29.0-33.0); MEAN PLATELET VOLUME 10.2 fl (7.4-10.4); MONOCYTE # 0.5 10^3/ul (0.3-0.9); MONOCYTES % 8.3 % (0.0-11.0); NEUTROPHIL # 3.8 10^3/ul (1.6-7.5); PLATELET COUNT 478 10^3/UL (140-415); RED BLOOD COUNT 3.61 10^6/ul (4.20-5.40); RED CELL DISTRIBUTION WIDTH 13.6 % (11.5-14.5)
[2018-10-20 06:15] LABS: WHITE BLOOD COUNT 6.1 10^3/ul (4.8-10.8)
[2018-10-20 06:40] LABS: ANION GAP 8 (5-13); BLOOD UREA NITROGEN 14 mg/dl (7-20); CALCIUM 8.9 mg/dl (8.4-10.2); CARBON DIOXIDE 25 mmol/L (21-31); CHLORIDE 106 mmol/L (97-110); CREATININE 1.04 mg/dl (0.44-1.00); Estimated GFR 55 mL/min (>60); GLUCOSE 163 mg/dl (70-220); POTASSIUM 4.8 mmol/L (3.5-5.1); SODIUM 139 mmol/L (135-144)
[2018-10-20] MEDS ORDERED: HEPARIN 5,000 UNIT/0.5 ML VIAL ×2 (08:05→20:10)
[2018-10-20] MEDS: INSULIN ASPART [NOVOLOG] 3 ML PEN SC ×7 (08:26→20:42)
[2018-10-20] MEDS: LINAGLIPTIN 5 MG TABLET PO (08:28)
[2018-10-20] MEDS: FLUCONAZOLE 100 MG TAB PO (08:28)
[2018-10-20] MEDS: LISINOPRIL 5 MG TAB PO (08:29)
[2018-10-20] MEDS: HEPARIN 5,000 UNIT/1 ML VIAL SC ×2 (08:31→20:39)
[2018-10-20] MEDS: VANCOMYCIN 500MG/NS (PMX) 100 ML IVPB ×2 (08:33→20:41)
[2018-10-20] MEDS: HYDROCODONE/APAP (5/325) TAB PO (16:20)
[2018-10-20] MEDS: SOD CHLORIDE 0.9% 100 ML (19:20)
[2018-10-20] MEDS: INSULIN GLARGINE [LANTus] (100 UNITS/ML) SYG SC (20:40)
[2018-10-21] MEDS: ACCU-CHEK XX (01:04)
[2018-10-21] MEDS: CIPROFLOXACIN 500 MG TAB PO (05:47)
[2018-10-21] MEDS ORDERED: HEPARIN 5,000 UNIT/0.5 ML VIAL ×2 (08:19→20:26)
[2018-10-21] MEDS: VANCOMYCIN 500MG/NS (PMX) 100 ML IVPB (08:24)
[2018-10-21] MEDS: LINAGLIPTIN 5 MG TABLET PO (08:25)
[2018-10-21] MEDS: FLUCONAZOLE 100 MG TAB PO (08:25)
[2018-10-21] MEDS: HEPARIN 5,000 UNIT/1 ML VIAL SC ×2 (08:26→20:43)
[2018-10-21] MEDS: INSULIN ASPART [NOVOLOG] 3 ML PEN SC ×7 (08:27→20:41)
[2018-10-21] MEDS: LISINOPRIL 5 MG TAB PO (08:29)
[2018-10-21] MEDS: CEFTRIAXONE 1 GM/50 ML (PMX) 50 ML IVPB (13:25)
[2018-10-21] MEDS: INSULIN GLARGINE [LANTus] (100 UNITS/ML) SYG SC (20:42)
== END 2018-10-21 21:15 | disposition home health service (06) | DRG 872 ==
LOC: PP2 10-12 16:50 → E/R 14:49 → 6WM 23:58
PROC: 02HV33Z Insertion of Infusion Device into Superior Vena Cava, Percutaneous Approach (ICD-10-PCS; principal; 2018-10-20)
DX: A41.9 Sepsis, unspecified organism (principal); M86.171 Other acute osteomyelitis, right ankle and foot; L03.115 Cellulitis of right lower limb; N17.9 Acute kidney failure, unspecified; M86.671 Other chronic osteomyelitis, right ankle and foot; B37.49 Other urogenital candidiasis; L97.419 Non-pressure chronic ulcer of right heel and midfoot with unspecified severity; R65.20 Severe sepsis without septic shock; E11.610 Type 2 diabetes mellitus with diabetic neuropathic arthropathy; E11.42 Type 2 diabetes mellitus with diabetic polyneuropathy; E11.69 Type 2 diabetes mellitus with other specified complication; E11.621 Type 2 diabetes mellitus with foot ulcer; E11.65 Type 2 diabetes mellitus with hyperglycemia; E11.22 Type 2 diabetes mellitus with diabetic chronic kidney disease; E66.9 Obesity, unspecified; I12.9 Hypertensive chronic kidney disease with stage 1 through stage 4 chronic kidney disease, or unspecified chronic kidney disease; M89.8X7 Other specified disorders of bone, ankle and foot; N18.9 Chronic kidney disease, unspecified; Z68.35 Body mass index [BMI] 35.0-35.9, adult; Z91.14 Patient's other noncompliance with medication regimen; Z79.4 Long term (current) use of insulin
CPT/HCPCS: 36415; 36569; 71045; 73630; 73718; 76937; 80048; 80053; 80202; 81001; 82565; 82803; 82962; 83036; 83605; 83735; 84484; 84520; 85025; 85610; 85651; 85730; 86140; 87040; 87086; 93005; 93971; 96374; 99291-25